=== PATIENT | female | born 1945 | race Caucasian/White ===

== ENCOUNTER 2025-03-08 10:43 | Inpatient (IN) | payer MEDICARE, BC, SELFPAY ==
[2025-03-08] VITALS (24 sets, daily range): BP systolic 126–203; BP diastolic 58–105; BMI 36.2
[2025-03-08 03:37] LABS: % Basophils 0.4 % (0-2); % Immature Granulocytes 0.4 % (0-0.5); % Monocytes 2.9 % (1.7-9.3); % Neutrophils 90.3 % (42.2-75.2); Absolute Immature Granulocytes 0.1 10^3/uL (0-0.05); Absolute Lymphocytes 0.7 10^3/uL (1.2-3.4); Absolute Monocytes 0.3 10^3/uL (0.1-0.6); Absolute Neutrophils 10.3 10^3/uL (1.4-6.5); Hematocrit 39.9 % (37.0-47.0); Hemoglobin 13.8 g/dL (12.0-16.0); Mean Corp Hgb Conc. 34.6 g/dL (33.0-37.0); Mean Corpuscular Hgb 31.9 pg (27.0-31.0); Mean Corpuscular Volume 92.4 fL (81.0-99.0); Nucleated Red Blood Cells % 0 %; Platelet Count 173 10^3/uL (130-400); Red Blood Cell Count 4.32 10^6/uL (4.20-5.40); Red Cell Dist. Width 13.3 % (11.5-14.5); White Blood Cell Count 11.4 10^3/uL (4.8-10.8)
[2025-03-08 04:02] LABS: ALT (SGPT) 26 U/L (0-35); AST (SGOT) 29 U/L (14-36); Alkaline Phosphatase 49 U/L (38-126); Blood Urea Nitrogen 21 mg/dl (7-17); Calcium 9.2 mg/dl (8.4-10.2); Carbon Dioxide 28 mmol/L (22-30); Chloride 103 mmol/L (98-107); Estimated Creatinine Clearance 58 ml/min; Glucose 138 mg/dl (70-99); Lipase 206 U/L (23-300); Potassium 4.1 mmol/L (3.5-5.1); Sodium 137 mmol/L (135-145); Total Bilirubin 1.5 mg/dl (0.2-1.3); Total Protein 7.1 g/dl (6.3-8.2); eGFR > 60.00
[2025-03-08 04:51] LABS: Urine Albumin 2+ (Neg - Trace); Urine Bilirubin Negative (Negative); Urine Character Clear (Clear); Urine Color Amber; Urine Glucose Negative (Negative); Urine Ketone 3+ (Negative); Urine Leukocyte 1+ (Negative); Urine Nitrite Negative (Negative); Urine Occult Blood 4+ (Negative); Urine Urobilinogen 1+ (Neg - 1+)
[2025-03-08 05:57] LABS: Urine Mucus Moderate; Urine Squamous Cell >30 /LPF (Few)
[2025-03-08 05:59] LABS: Urine Red Blood Cell 16-20 /HPF (0-2)
[2025-03-08 06:00] LABS: Urine Bacteria Many (Negative)
[2025-03-08] MEDS: MORPHINE SULFATE 2 MG IV ×2 (07:23→09:12)
--- NOTE | 2025-03-08 07:30 | ED.GENMED ---
History of Present Illness
<Arik Marques PA-C - Last Filed: 03/08/25 11:40>
General
Chief Complaint: Abdominal Pain
Source: patient
Time Seen by Provider: 03/08/25 07:07
History of Present Illness
History of Present Illness:
79-year-old female with past medical history of pacemaker placement presenting to the emergency department for evaluation of generalized lower abdominal pain which started about 24 hours ago, gradually worsening prompting her to come to the ER this
morning without any other associated symptoms. Patient describes the pain to be a constant cramping sensation, may be slightly worse on the left than the right, did not attempt anything for relief prior to arrival. She does note she has had
similar pain in the past but this usually resolves on its own. She is otherwise denying any fevers, chills, rigors, nausea, vomiting, bowel changes or urinary symptoms. Denies any surgical history on her abdomen. Social history otherwise
noncontributory.
Past History
<Arik Marques PA-C - Last Filed: 03/08/25 11:40>
Past History
ED Past Medical History: Arrthythmia
ED Past Surgical History: Cardiac
Social History
Tobacco: Non-smoker
Alcohol: None
Drug: None
Personal:
Living: with family
Review of Systems
<Arik Marques PA-C - Last Filed: 03/08/25 11:40>
Review of Systems
All Other Systems: ROS reviewed and negative except as documented in HPI and ROS
Phy Exam
<Arik Marques PA-C - Last Filed: 03/08/25 11:40>
Physical Exam
Physical Exam:
GENERAL: Alert , in no apparent distress but does appear uncomfortable
EYE: clear conjunctiva b/l
HEAD: NCAT
ENT: o/p clr, mmm.
CARDIAC: Borderline tachycardic rate and normal rhythm .
LUNGS: Clear breath sounds bilaterally, no acute respiratory distress, no wheezes/rales/rhonchi
ABDOMEN: firm, tender across the lower abdomen left slightly worse than right, grimacing with palpation, no cvat
NEUROLOGICAL: Alert and oriented
SKIN: Warm and dry, skin intact.
MUSCULOSKELETAL: No edema, well perfused.
PSYCH: Normal and appropriate interaction.
Scores
<Arik Marques PA-C - Last Filed: 03/08/25 11:40>
Heart Failure Risk
Heart Failure Risk Score: Not Applicable
Heart Score for Chest Pain Patients
STEMI patient?: Not applicable
Withdrawal Assessment of Alcohol
Withdrawal Assessment Completed?: Not applicable
Course
<Arik Marques PA-C - Last Filed: 03/08/25 11:40>
Orders/Labs/Results
Orders:
Orders
03/08/25 02:52
IV Insert/Care/Rem.- Treatment PRN
03/08/25 03:25
Complete Blood Count/With Diff Urgent
Comprehensive Metabolic Panel Urgent
Lipase Urgent
03/08/25 04:22
Urinalysis Reflex To Culture Urgent
Date Specimen was Collected: 03/08/25
Time Specimen was Collected: 02:52
Urine Microscopic Reflex Cult Urgent
Urine Culture Urgent
MARLEN Source: U
Specimen Description:
Date Specimen was Collected: 03/08/25
Time Specimen was Collected: 02:52
03/08/25 07:15
Morphine Sulfate 2 mg IV NOW STA
03/08/25 07:16
CT Abd/pelvis W Iv Cont Urgent
Comment:
Reason For Exam: generalized lower abd pain
03/08/25 09:03
Piperacillin/Tazo 4.5 Gram [Zosyn] 4.5 gram in 100 ml IV NOW
03/08/25 09:08
0.9% Sodium Chloride 1000 ml [Nss] 1,000 ml IV BOLUS
Morphine Sulfate 2 mg IV NOW STA
03/08/25 09:12
Lactic Acid Q4H
Comment: CANCEL 2nd LACTIC ACID IF 1st LACTIC ACID IS LESS THAN 2
Blood Culture Q30M
MARLEN Source: Blood/Venous
Specimen Description:
03/08/25 09:50
Morphine Sulfate 4 mg IV NOW STA
03/08/25 10:05
EKG [Electrocardiogram (*1)] Stat
Reason for Study: Tachycardia
03/08/25 10:06
CR Chest - 2 Views Stat
Comment:
Reason For Exam: sepsis
03/08/25 10:08
Blood Culture Q30M
MARLEN Source: Blood/Venous
Specimen Description:
03/08/25 10:30
Admit/Transfer Patient As Directed
Co-Sign Provider:
Level of Care: Inpatient admission
Assign to:: ICU
Physician / Group: Hospitalist
Diagnosis: Acute abdomen
Reason for Hospitalization: .
Expected length of stay greater than two midnights?: Yes
ELOS- Estimated Length of Stay in days: 3
I certify the patient meets the requirements for IP care: Yes
PRN Pain Medication Management As Directed
May give lesser potent ordered pain med per pt: Yes
preference::
Protocol:: Medication orders for pain may be administered in a
manner that supports deferring to patient preference
when the pt is:
- Requesting an ordered lesser potent pain medication.
Least to most potent pain medications are defined
as: acetaminophen < NSAID < tramadol < opioids
(morphine, oxycodone, hydromorphone).
- Requesting a lesser dose of the same medication IF
ORDERED.
- Requesting a less intrusive route of administration
if both routes are prescribed by the provider (PO <
IV).
03/08/25 10:31
Code Status As Directed
Resuscitation Status: Full Code
03/08/25 10:32
Consult Surgery [SURGICAL CONSULT] Stat
Consulting Provider: Johnnie Mejía
Was physician already notified: Yes
Reason for consult: Acute abdomen secondary to perforated bowel
03/08/25 13:15
Lactic Acid Q4H
Comment: CANCEL 2nd LACTIC ACID IF 1st LACTIC ACID IS LESS THAN 2
Abnormal Lab Results
03/08/25 03/08/25
03: 04:22
WBC 11.4 H 10^3/uL
(4.8-10.8)
MCH 31.9 H pg
(27.0-31.0)
Abs Immat Gran (auto) 0.1 H 10^3/uL
(0-0.05)
Absolute Neuts (auto) 10.3 H 10^3/uL
(1.4-6.5)
Absolute Lymphs (auto) 0.7 L 10^3/uL
(1.2-3.4)
Neutrophils % 90.3 H %
(42.2-75.2)
Lymphocytes % 6.0 L %
(20.5-51.1)
BUN 21 H mg/dl
(7-17)
Glucose 138 H mg/dl
(70-99)
Total Bilirubin 1.5 H mg/dl
(0.2-1.3)
Urine Ketones 3+ A
(Negative)
Ur Occult Blood Reflex 4+ A
(Negative)
Leukocyte Esterase Rfl 1+ A
(Negative)
Urine RBC 16-20 A /HPF
(0-2)
Urine Bacteria (Reflex) Many A
(Negative)
Urine Albumin (Reflex) 2+ A
(Neg - Trace)
03/08/25 03:25
03/08/25 03:25
Vital Signs
Initial and Last Documented VS:
Initial Vital Signs
Temp Pulse Resp BP Pulse Ox
98.1 F 94 18 184/85 96
03/08/25 02:36 03/08/25 02:36 03/08/25 02:36 03/08/25 02:36 03/08/25 02:36
Last Documented Vital Signs
Temp Pulse Resp BP Pulse Ox
99.3 F 87 17 163/76 91
03/08/25 07:04 03/08/25 11:00 03/08/25 11:00 03/08/25 11:00 03/08/25 11:00
<Louis Cervantes, DO - Last Filed: 03/08/25 10:26>
Orders/Labs/Results
Orders:
Orders
03/08/25 02:52
IV Insert/Care/Rem.- Treatment PRN
03/08/25 03:25
Complete Blood Count/With Diff Urgent
Comprehensive Metabolic Panel Urgent
Lipase Urgent
03/08/25 04:22
Urinalysis Reflex To Culture Urgent
Date Specimen was Collected: 03/08/25
Time Specimen was Collected: 02:52
Urine Microscopic Reflex Cult Urgent
Urine Culture Urgent
MARLEN Source: U
Specimen Description:
Date Specimen was Collected: 03/08/25
Time Specimen was Collected: 02:52
03/08/25 07:15
Morphine Sulfate 2 mg IV NOW STA
03/08/25 07:16
CT Abd/pelvis W Iv Cont Urgent
Comment:
Reason For Exam: generalized lower abd pain
03/08/25 09:03
Piperacillin/Tazo 4.5 Gram [Zosyn] 4.5 gram in 100 ml IV NOW
03/08/25 09:08
0.9% Sodium Chloride 1000 ml [Nss] 1,000 ml IV BOLUS
Morphine Sulfate 2 mg IV NOW STA
03/08/25 09:12
Lactic Acid Q4H
Comment: CANCEL 2nd LACTIC ACID IF 1st LACTIC ACID IS LESS THAN 2
Blood Culture Q30M
MARLEN Source: Blood/Venous
Specimen Description:
03/08/25 09:50
Morphine Sulfate 4 mg IV NOW STA
03/08/25 10:05
EKG [Electrocardiogram (*1)] Stat
Reason for Study: Tachycardia
03/08/25 10:06
CR Chest - 2 Views Stat
Comment:
Reason For Exam: sepsis
03/08/25 10:08
Blood Culture Q30M
MARLEN Source: Blood/Venous
Specimen Description:
03/08/25 10:30
Admit/Transfer Patient As Directed
Co-Sign Provider:
Level of Care: Inpatient admission
Assign to:: ICU
Physician / Group: Hospitalist
Diagnosis: Acute abdomen
Reason for Hospitalization: .
Expected length of stay greater than two midnights?: Yes
ELOS- Estimated Length of Stay in days: 3
I certify the patient meets the requirements for IP care: Yes
PRN Pain Medication Management As Directed
May give lesser potent ordered pain med per pt: Yes
preference::
Protocol:: Medication orders for pain may be administered in a
manner that supports deferring to patient preference
when the pt is:
- Requesting an ordered lesser potent pain medication.
Least to most potent pain medications are defined
as: acetaminophen < NSAID < tramadol < opioids
(morphine, oxycodone, hydromorphone).
- Requesting a lesser dose of the same medication IF
ORDERED.
- Requesting a less intrusive route of administration
if both routes are prescribed by the provider (PO <
IV).
03/08/25 10:31
Code Status As Directed
Resuscitation Status: Full Code
03/08/25 10:32
Consult Surgery [SURGICAL CONSULT] Stat
Consulting Provider: Johnnie Mejía
Was physician already notified: Yes
Reason for consult: Acute abdomen secondary to perforated bowel
03/08/25 13:15
Lactic Acid Q4H
Comment: CANCEL 2nd LACTIC ACID IF 1st LACTIC ACID IS LESS THAN 2
Abnormal Lab Results
03/08/25 03/08/25
03:25 04:22
WBC 11.4 H 10^3/uL
(4.8-10.8)
MCH 31.9 H pg
(27.0-31.0)
Abs Immat Gran (auto) 0.1 H 10^3/uL
(0-0.05)
Absolute Neuts (auto) 10.3 H 10^3/uL
(1.4-6.5)
Absolute Lymphs (auto) 0.7 L 10^3/uL
(1.2-3.4)
Neutrophils % 90.3 H %
(42.2-75.2)
Lymphocytes % 6.0 L %
(20.5-51.1)
BUN 21 H mg/dl
(7-17)
Glucose 138 H mg/dl
(70-99)
Total Bilirubin 1.5 H mg/dl
(0.2-1.3)
Urine Ketones 3+ A
(Negative)
Ur Occult Blood Reflex 4+ A
(Negative)
Leukocyte Esterase Rfl 1+ A
(Negative)
Urine RBC 16-20 A /HPF
(0-2)
Urine Bacteria (Reflex) Many A
(Negative)
Urine Albumin (Reflex) 2+ A
(Neg - Trace)
03/08/25 03:25
03/08/25 03:25
Vital Signs
Initial and Last Documented VS:
Initial Vital Signs
Temp Pulse Resp BP Pulse Ox
98.1 F 94 18 184/85 96
03/08/25 02:36 03/08/25 02:36 03/08/25 02:36 03/08/25 02:36 03/08/25 02:36
Last Documented Vital Signs
Temp Pulse Resp BP Pulse Ox
99.3 F 87 17 163/76 91
03/08/25 07:04 03/08/25 11:00 03/08/25 11:00 03/08/25 11:00 03/08/25 11:00
<Arik Marques PA-C - Last Filed: 03/08/25 11:40>
MDM/Problems Addressed
Differential Diagnosis Includes:
Colitis, diverticulitis, appendicitis, pancreatitis, urinary tract infection, cholecystitis constipation
MDM/Problems Addressed:
79-year-old female presenting to the emergency department for evaluation of bilateral lower abdominal pain over the last 24 hours, did not attempt any medications prior to arrival. Does appear quite uncomfortable at time of my exam. Pain little
bit worse on the left than the right with palpation. Labs initiated on arrival which do show a mild leukocytosis of 11,000, chemistry relatively unremarkable. Urinalysis does show 4+ microscopic blood and 1+ leukocytes however the differential
does not seem convincing for urinary tract infection but urine will be sent for culture. CT of the abdomen and pelvis ordered. Morphine ordered for pain control.
<Arik Marques PA-C - Last Filed: 03/08/25 11:40>
*Radiology
Radiology exam reviewed: radiology read reviewed
*Pulse Oximetry
Patient hypoxic: no
*Neon Sign Mechanic Interpretation
Rate: normal
Rhythm: sinus
*Critical Care Note
Total Time (30-74mins, 75-104mins- exclusive of procedures): 35
comment:
Critical care statement: A total of 35 minutes of critical care time was provided for this patient. This includes management of unstable vital signs, evaluation of the patient at bedside, reviewing the patient's pertinent medical records, discussion
with consultants, review of old EKGs and review of pertinent medical records. This time with separate from time utilized to perform the aforementioned documented procedures
<Arik Marques PA-C - Last Filed: 03/08/25 11:40>
Patient Management
Discussion with other providers: Hospitalist, Dry Ice Maker and Radiologist
Escalation/DeEscalation of care consider admission/obs:
8:15 AM: On reevaluation following morphine patient stated that she did have some improved pain, declining anything further for pain at this time. CT results.
9 AM: Received notification from radiology via [place] text that patient had suspected diverticulitis with associated bowel perforation and abscess formation. I contacted general surgery and spoke with hospitalist team for admission. Patient
currently on Xarelto and last dose was taken at around 8 PM last night. Discussed with surgery possibility of starting Kcentra if they felt patient needed to go to the OR sooner rather than later. At this time surgery does not feel Kcentra is
needed, will discuss with interventional radiology to see if they would be able to intervene on the affected area. Fluids and antibiotics ordered. Hospitalist team to admit. Patient to be kept NPO. I also ordered additional pain medication as
patient started to experience increased pain after the first reassessment
ED Attending Note
<Arik Marques PA-C - Last Filed: 03/08/25 11:40>
-
Portions of this chart may have been created with voice recognition software.� Occasional wrong word or��sound alike� substitutions may have occurred due to the inherent limitations of voice recognition software.
<Louis Cervantes DO - Last Filed: 03/08/25 10:26>
ED Attending Note
Patient seen and examined by attending physician: Yes
I performed the substantive portion of visit, reviewed & personally made and approve the management plan that is documented in note by myself or CHRISTINE.: Yes
ED Attending Note:
I have seen and evaluated the patient with a [id number] encounter. I have spoken to the advance practicer provider and involved in the medical history, the physical exam, medical decision making.
Evaluation and management service: agree unless noted differently below.
Results interpretation: agree unless noted differently below.
Focused HPI: 79-year-old female presenting with abdominal pain. She states it woke her up from sleep.
Physical exam: Voluntary guarding on her abdomen. Uncomfortable. Tachycardic
Medical Decision Making: CT consistent with perforated diverticulosis with possible early abscess formation. Patient is on Xarelto. Will start antibiotics and control pain. Surgery aware
Discharge Plan
Departure
Patient Disposition: Admit
Date of Disposition: 03/08/25
Time of Disposition: 09:09
Presentation/result/management discussed w/ accepting MD/DO: Hospitalist
Discharge Problem:
Diverticulitis of intestine with perforation
Interventions
Interventions:
*Risk Screen - Suicide Last Done: 03/08/25 02:36
*General Assessment Last Done: 03/08/25 04:20
*Neglect/Abuse Screening Last Done: 03/08/25 02:36
*ED- Fall Risk Assessment Last Done: 03/08/25 04:20
*ED COVID-19 Vaccine History Last Done: 03/08/25 04:20
LF-Qhswao-Kajwhirhhx Assessment Last Done: 03/08/25 04:30
[2025-03-08] MEDS: ZOSYN 100 IV (09:13)
[2025-03-08] MEDS: NSS 1000 IV ×3 (09:13→19:04)
[2025-03-08 09:44] LABS: Lactic Acid 1.1 mmol/L (0.7-2.0)
--- NOTE | 2025-03-08 10:04 | HPS.HSE ---
Family Physician
-
Family Physician: NOT KNOW UNKNOWN - PT DOES
Chief Complaint
-
Abdominal pain for a few days duration
History of Present Illness
79 years old female presented with abdominal pain. Patient described pain as a progressive in the lower abdomen. No nausea or vomiting. Denies chills. Patient denies history of diverticulitis. In the ER, she had leukocytosis and tender abdomen.
Scan of the abdomen showed perforated diverticulitis. Surgery was consulted. She was started on IV antibiotics.
Medical History
Past Medical History
Past Medical History: Reports Other (History of A-fib, status post pacemaker, mild cognitive impairment, hypertension)
Past Surgical History: Reports Other (No recent major surgery)
Social History
Tobacco: Non-smoker
Alcohol: None
Drug: None
Personal:
Living: With Family
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
Family History
Family History: Not pertinent
Allergies / Home Medications
Allergies reflects when Allergies were last updated in [employer].
Home Medications with original date entered in [employer]
Allergy/Medication List:
Allergies
Allergy/AdvReac Type Severity Reaction Status Date / Time
No Known Drug Allergies Allergy Unknown Verified 03/08/25 02:45
Home Medications
donepezil 10 mg tablet 10 mg PO DAILY 03/08/25
rivaroxaban 20 mg tablet (Xarelto) 20 mg PO QPM 03/08/25
sertraline 50 mg tablet 50 mg PO DAILY 03/08/25
valsartan 320 mg tablet 320 mg PO DAILY 03/08/25
verapamil 180 mg tablet,extended release 180 mg PO DAILY 03/08/25
Review of Systems
-
History Source: Patient
A 12 point ROS was completed and negative except as noted: Yes
Constitutional: Denies Fever
EENT: Denies Sore Throat
Respiratory: Denies Cough
Cardiac: Denies Chest Pain
Abdomen/GI: Reports Abdominal Pain
: Denies Dysuria
Musculoskeletal: Denies Joint Pain
Skin: Denies Rash
Neurological: Denies Numbness
Endocrine: Denies Temp Intolerance
Hematologic/Lymphatic: Denies Bruising
Psych: Denies Panic Disorder
Physical Exam
Vital Signs
Vital Signs
Temp Pulse Resp BP Pulse Ox
99.3 F 90 16 166/70 95
03/08/25 07:04 03/08/25 10:00 03/08/25 10:00 03/08/25 10:00 03/08/25 10:00
Physical Exam
General: Obese
HEENT: Atraumatic
Respiratory: Clear
Cardiac: S1/S2 and Tachycardia
GI: Tender and Distended
Genito-urinary: No Turner
Musculoskeletal: No Cyanosis and No Edema
Skin: No Jaundice
Neuro: Awake and Oriented; No Slurred Speech or Facial Droop
Psych: Calm; No Anxious
Laboratory Results
-
03/08/25 03:25
03/08/25 03:25
Laboratory Results
Lactic Acid 1.1 mmol/L (0.7-2.0) 03/08/25 09:12
Total Bilirubin 1.5 mg/dl (0.2-1.3) H 03/08/25 03:25
AST 29 U/L (14-36) 03/08/25 03:25
ALT 26 U/L (0-35) 03/08/25 03:25
Alkaline Phosphatase 49 U/L (38-126) 03/08/25 03:25
Lipase 206 U/L (23-300) 03/08/25 03:25
Impression/Plan
-
79 years old female admitted with abdominal pain was found to have perforated diverticulitis.
# Sepsis present on admission with leukocytosis, tachycardia, diverticulitis
Acute perforated diverticulitis.
CAT scan showed sigmoid diverticulitis with free air in the abdomen consistent with perforation
Patient has acute abdomen on examination. Surgery notified for a stat consult.
Admit the patient high-level care
Strict to n.p.o.
IV fluid
Negative lactic acid, do serial
Monitor on telemetry
IV antibiotics
Blood culture
Discussed with surgery, will do reversal agent of Xarelto
IV PPI for GI prophylaxis
# History of atrial fibrillation, do not know the type, order stat EKG. 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
Holding anticoagulation. Will order reversal agent for possible need for surgery
Patient follows with [place] [facility], no prior records
She denies chest pain.
# Primary hypertension. N.p.o. for now. Will order IV metoprolol
# CODE STATUS, full code
# Obesity BMI 36
# Mild cognitive impairment. Lives with who is a caregiver. Her cognitive function described as fair/good by the
Total critical time spent to see the patient, examine the patient, review data and lab results, discussed treatment plan with patient and her , marketing regional consultant, ER doctor and nursing staff around 80 minutes
[2025-03-08] MEDS: MORPHINE SULFATE 4 MG IV (10:07)
--- NOTE | 2025-03-08 11:47 | CON.GS ---
Addendum entered and electronically signed by Johnnie Mejía MD 03/09/25 14:56:
Patient seen and examined on 03/08/2025 (error in documentation time).
Patient is a 79 yo F with a PMH of obesity, HTN, A-fib (s/p ablation x 2, PPM, and on Xarelto, LD 5/16 PM), and CVA who presents with generalized abdominal discomfort. She began feeling unwell approximately 2 days prior to presentation. No nausea
or vomiting. No fevers or chills. She was able to pass a normal BM prior to admission. She denies any prior attacks or history of diverticulitis. No recent colonoscopy.
Gen: NAD
Abd: soft, tender (lower greater than upper), obese, mild distension, no rebound or guarding
Patient is an 79 yo F p/w acute perforated diverticulitis with abscess formation
Afebrile, mildly tachycardic, no hypotension
Labs notable for leukocytosis to 11 normal renal function, mild bilirubin elevation,
The natural history and pathophysiology of diverticulitis was discussed. Options for management including medical management with antibiotics versus surgical management were considered and discussed. We discussed that surgical management would
involve a exploratory laparotomy with end colostomy formation. Given her active anticoagulation she is at increased risk for operative complications (particularly bleeding) at this time. Given her clinical stability recommend a trial of antibiotic
management. Patient and agree. All questions answered.
--Keep NPO for bowel rest
--Abx: Zosyn
--IVF while NPO
--Hold Xarelto
--Lactic acid and blood cx pending
--Trend labs
--Discussed imaging with IR, no window for drain placement into affected area
Will continue nonoperative measures today with bowel rest and antibiotics with oral AC on hold. If she worsens or does not improve, would require emergent surgery which would likely entail colostomy creation which was discussed with patient and her
spouse. Will follow closely for improvement with nonoperative measures.
Original Note:
Consultation
-
Date/Time Consultation Performed: 03/08/25 1100
Medical History
-
Chief Complaint: Generalized lower abd discomfort
History of Present Illness:
Ms Shea is an 79 yo female with a h/o AFib on Xarelto (LD 5/16 pm), CVA and HTN who presented through the ED today with generalized lower abdominal discomfort with cramping and generally feeling unwell for the day or two. She denies nausea and
vomiting, fever or chills. She was able to pass a normal BM today. On exam, she has mild LLQ pain and moderate pain to the RLQ towards midline.
Past Medical History
Past Medical History: Arrhythmias (AFib, s/p ablation x2, PPM), CVA (2012), HTN, Psychiatric (depression) and Other (obesity)
Past Surgical History: Cardiac (ppm)
Social History
Tobacco: Non-Smoker
Alcohol: None
Family History
Family History: Reviewed & Not Pertinent
Allergies / Home Medications
Allergy/AdvReac Type Severity Reaction Status Date / Time
No Known Drug Allergies Allergy Unknown Verified 03/08/25 02:45
�Medication �Instructions �Recorded �Confirmed �Type
donepezil 10 mg tablet 10 mg PO DAILY 03/08/25 03/08/25 History
rivaroxaban 20 mg tablet (Xarelto) 20 mg PO QPM 03/08/25 03/08/25 History
sertraline 50 mg tablet 50 mg PO DAILY 03/08/25 03/08/25 History
valsartan 320 mg tablet 320 mg PO DAILY 03/08/25 03/08/25 History
verapamil 180 mg tablet,extended 180 mg PO DAILY 03/08/25 03/08/25 History
release
Review of Systems
-
History Source: Patient and Family
All other systems: Negative unless noted
A 10 point review of systems was completed, and was negative except as per HPI.
Physical Exam
Vital Signs
Temp Pulse Resp BP Pulse Ox
99.3 F 87 17 163/76 91
03/08/25 07:04 03/08/25 11:00 03/08/25 11:00 03/08/25 11:00 03/08/25 11:00
03/07/25 03/08/25 03/09/25
06:59 06:59 06:59
Actual Weight 98.8 kg
Body Mass Index (BMI) 36.2
Lab Results
03/08/25 03:25
03/08/25 03:25
WBC 11.4 10^3/uL (4.8-10.8) H 03/08/25 03:25
Hgb 13.8 g/dL (12.0-16.0) 03/08/25 03:25
Hct 39.9 % (37.0-47.0) 03/08/25 03:25
Plt Count 173 10^3/uL (130-400) 03/08/25 03:25
Abs Immat Gran (auto) 0.1 10^3/uL (0-0.05) H 03/08/25 03:25
Neutrophils % 90.3 % (42.2-75.2) H 03/08/25 03:25
Physical Exam
General: Well Developed, Well Nourished and No Apparent Distress
HEENT: Moist Mucous Membranes
Respiratory: Non Labored Respirations
Cardiac: Irregular Rhythm
GI: Soft, Tender (lower abd r>l), Distended (minimal) and Obese
Skin: Warm and Dry
Neuro: Awake, Alert and AO x 3
Psych: Calm
Data Reviewed
-
CT Scan: Image Personally Visualized and interpreted, Report Reviewed by me, Discussed with Physician, Discussed with Patient and Discussed with Family
Labs: Labs Reviewed by me, Discussed with Physician, Discussed with Patient and Discussed with Family
Assessment / Plan
-
79 yo female with h/o CVA, afib on xarelto (LD 5/16 pm) who presents with lower abdominal pain with r>l tenderness on exam with mild leukocytosis (wbc 11.4), afebrile with mild intermittent tachycardia into the low 100's. CT imaging reviewed with
findings of sigmoid diverticulitis complicated by local perforation with likely developing an abscess with associated small bowel thickening nearby. Incidental finding of left spigelian hernia containing unobstructed bowel. High risk for ileus, but
did pass a BM today.
--Keep NPO for bowel rest
--Continue IV ABX
--IVF while NPO
--Hold Xarelto
--Lactic acid and blood cx pending
--Trend labs
--Discussed imaging with IR, no window for drain placement into affected area
Will continue nonoperative measures today with bowel rest and antibiotics with oral AC on hold. If she worsens or does not improve, would require emergent surgery which would likely entail colostomy creation which was discussed with patient and her
spouse. Will follow closely for improvement with nonoperative measures.
--- NOTE | 2025-03-08 12:25 | W.PN.UPDATE ---
Update Note
Progress Note Update
Addendum
Reviewed surgery consult note
No plan for surgery today
Will cancel prothrombin complex
[2025-03-08] MEDS: LOPRESSOR 5 MG IV ×2 (12:57→17:33)
--- NOTE | 2025-03-08 13:24 | PTCARENOTE ---
Pt received from the ER into ICU 3372. Pt ambulated from stretcher to the bed, walked to the BR without issue and is now back in bed. Ox3 with some baseline confusion per , she is not the best historian but is very pleasant and cooperative.
Afib in the 100's on tele, large legs, trace LE edema, weak pedal pulses. Pacemaker. Xarleto currently on hold. Breath sounds clear on RA. ABD tender throughout, worse in the R middle, NPO. Pt walking to the bathroom with minimal assistance. Skin
clear. IV sites intact. Pt received IV Lopressor and HR is now stable in the 70-80's.
--- NOTE | 2025-03-08 14:34 | CM ---
CM following re: discharge planning.
Reviewed pt's chart, met with pt and pt's at bedside.
Pt is an 79 year old female, admitted with primary dx of Abdominal pain.
Pt reports she lives with 2SH, 3 steps to enter, has 2 children and [place]. 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 No DME, VN or SNF history.
PCP: Dr. Napier
Pharmacy: [facility]
D/C cooper: home with anticipated no needs.
CM will follow with discharge plan updates as hospitalization progresses
[2025-03-08] MEDS: ZOSYN 50 IV ×2 (15:50→22:10)
--- NOTE | 2025-03-08 17:30 | CON.INTV ---
Consultation
Consultation Request
Date/Time Consultation Requested: 03/08/2025 - 1642
Date/Time Consultation Performed: 03/08/2025 - 1706
Requesting Provider: Dr. Edward
Performing Provider: Dr. Abernathy
Reason for Consultation: Perforated sigmoid diverticulitis
Medical History
-
Chief Complaint: Abdominal pain
History of Present Illness:
79-year-old female with history of A-fib on Xarelto s/p pacemaker, mild cognitive impairment and hypertension who presented with abdominal pain. Patient says she woke up from sleep with bilateral abdominal pain and pressure. Her belly hurt when
she pressed on it. She has had this pain since yesterday and it did not go away. Her last bowel movement was yesterday (03/07). In the ER she was afebrile to 98.1 �F, pulse rate 94, respiratory rate 18, BP 184/85, and saturating 96% on room air.
Labs showed mild leukocytosis to 11.4, lactate 1.1, T. bili 1.5 and urinalysis with +1 leukocyte esterase with many urine bacteria. Urine and blood cultures collected. CT abdomen/pelvis with IV contrast showed perforated sigmoid diverticulitis
with possible early/developing pericolonic abscess. In the ER she was given 1 L NS 0.9%, 4 mg morphine and Zosyn. General surgery was consulted who advised to keep NPO for bowel rest, continue IV antibiotics, continue IVF, hold Xarelto and
continue nonoperative measures. Currently no plans for surgery but if her symptoms worsened then she would need/require surgery at that time likely with a colostomy creation. Patient admitted to the ICU for close monitoring and Clinical Pharmacy Technician
services consulted for additional management/recommendations
When I saw the patient today, she was resting in bed in no acute distress. BP 140/79, heart rate 95 and saturating 95% on room air. She still endorses middle to lower abdominal pain. Last bowel movement yesterday. She denies any blood in her
stool. She currently denies nauseous, BURNS, SOB, chest pain, fevers or chills.
PMHx: History of A-fib on Xarelto s/p pacemaker, mild cognitive impairment, hypertension
PSHx: Pacemaker, lumpectomy, cataract surgery
Past Medical History
Past Medical History: Other (Above as per HPI)
Past Surgical History: Other (Above as per HPI)
Social History
Tobacco: Non-smoker
Alcohol: None
Drug: None
Personal:
Living: With Family
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
Family History
Family History: Reviewed & Not Pertinent
Allergies / Home Medications
Allergies
Allergy/AdvReac Type Severity Reaction Status Date / Time
No Known Drug Allergies Allergy Unknown Verified 03/08/25 02:45
Home Medications
�Medication �Instructions �Recorded �Confirmed �Last Taken �Type
donepezil 10 mg tablet 10 mg PO DAILY 03/08/25 03/08/25 03/07/25 History
rivaroxaban 20 mg tablet (Xarelto) 20 mg PO QPM 03/08/25 03/08/25 03/07/25 History
sertraline 50 mg tablet 50 mg PO DAILY 03/08/25 03/08/25 03/07/25 History
valsartan 320 mg tablet 320 mg PO DAILY 03/08/25 03/08/25 03/07/25 History
verapamil 180 mg tablet,extended 180 mg PO DAILY 03/08/25 03/08/25 03/07/25 History
release
Review of Systems
-
History Source: Patient
All other systems: Negative unless noted
Vitals / Labs / Diagnostic Testing
Vital Signs
Temp Pulse Resp BP Pulse Ox
98.8 F 82 20 138/69 94
03/08/25 12:09 03/08/25 13:15 03/08/25 13:15 03/08/25 13:00 03/08/25 13:31
Lab Data
03/08/25 03:25
03/08/25 03:25
Diagnostic Testing:
Physical Exam
-
HEENT: Normocephalic and Anicteric
Cardiovascular: S1/S2 and Peripheral Edema (negative)
Respiratory: Clear, Wheeze (negative), Rales (negative), Rhonchi (negative) and Non-Labored Respirations
GI: Soft, Non Distended, Tender (Periumbilical region) and Normal Bowel Sounds
Neurology: AO x 3 and Tremors (negative)
Skin: Warm and Dry
General: Respiratory Distress (negative), Pain (Lower abdomen), Chills (negative) and Sweats (negative)
Assessment
-
Assessment: 79-year-old female with history of A-fib on Xarelto s/p pacemaker, mild cognitive impairment and hypertension who presented with abdominal pain. Patient says she woke up from sleep with bilateral abdominal pain and pressure. Her belly
hurt when she pressed on it. She has had this pain since yesterday and it did not go away. Her last bowel movement was yesterday (03/07). In the ER she was afebrile to 98.1 �F, pulse rate 94, respiratory rate 18, BP 184/85, and saturating 96% on
room air. Labs showed mild leukocytosis to 11.4, lactate 1.1, T. bili 1.5 and urinalysis with +1 leukocyte esterase with many urine bacteria. Urine and blood cultures collected. CT abdomen/pelvis with IV contrast showed perforated sigmoid
diverticulitis with possible early/developing pericolonic abscess. In the ER she was given 1 L NS 0.9%, 4 mg morphine and Zosyn. General surgery was consulted who advised to keep NPO for bowel rest, continue IV antibiotics, continue IVF, hold
Xarelto and continue nonoperative measures. Currently no plans for surgery but if her symptoms worsened then she would need/require surgery at that time likely with a colostomy creation. Patient admitted to the ICU for close monitoring and
Clinical Pharmacy Technician services consulted for additional management/recommendations
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
Impression:
#Perforated sigmoid diverticulitis with suspected early/developing pericolonic abscess.
#Leukocytosis due to above
#Hyperbilirubinemia (mild)
#Abnormal UA concerning for UTI (+1 leukocyte esterase + many urine bacteria)
#Left-sided spigelian hernia containing nonobstructed bowel
#Atrial fibrillation on Xarelto s/p PPM
Plan:
- Patient is not deemed a surgical candidate as per general surgery
- Surgery discussed imaging with IR, and unfortunately there is no safe window for drain placement into the affected area
- Serial abdominal exams
- Keep NPO
- Hold xarelto
- Pain control
- General Surgery to continue following along
- Continue with broad-spectrum antibiotics - currently on Zosyn
- Follow-up blood cultures x2 collected today
- Follow-up urine culture
- Maintain SpO2 >90-94% using supplemental O2 if needed
- Continue aspiration precautions; keep HOB >30-45�
- Maintain MAP>65
- Continue IVF with NS 0.9% @ 150cc/hr
- Replete electrolytes with K>4, Mg>2
- Maintain euglycemia with goal BG 140-180
- Trend H/H and transfuse if needed to keep Hb>7g/dL; keep plt>20k, unless there is concern for bleeding then keep plt>50k
- prn nebulized bronchodilators - not currently bronchospastic
- Incentive spirometer encouraged 10x per hour for at least 4 hrs a day
- DVT ppx: Hold Xarelto for now in case she needs emergent surgery; defer resuming NOAC to general surgery
Code status: Full Code
Continue close monitoring for this patient with a perforated viscous as she may require emergent surgery if she were to deteriorate.
Data:
CT abdomen/pelvis with IV contrast 03/08/2025:
There is stranding and edema along the sigmoid colon with a small focus of free air along the anterior aspect of the mid colon consistent with perforation. Findings are likely secondary to perforated diverticulitis with a possible early/developing
pericolonic abscess.
There is looped of small bowel which demonstrate wall thickening and mild dilation. Represent developing reactive ileus.
Left-sided spigelian hernia containing nonobstructed bowel and small volume fluid.
Total time spent today was 79 minutes for this encounter. Time includes reviewing laboratory test/imaging results, reviewing pertinent medical records, obtaining and reviewing medical history, performing an appropriate exam, ordering medications,
tests and procedures. Time also includes documentation of this encounter, coordinating patient care and communicating with other healthcare professionals. Total time does not include separately billed tests performed on this date of service.
[2025-03-08] MEDS: TYLENOL 1000 MG PO (17:32)
--- NOTE | 2025-03-08 18:10 | PTCARENOTE ---
Pt reassessed. She states she is having slightly more abd pain, currently a 7/10- 1g tylenol given and patient walked to the BR. After walking pt felt better. Assessment otherwise unchanged.
--- NOTE | 2025-03-08 20:22 | PTCARENOTE ---
Assumed care of pt at 1900. Pt is A/O x3-4, did not know the month but otherwise oriented. Pleasant and cooperative with care. Reports mild abd pain across entire abd but pain is not bad while pt is not moving. Discussed pain control options, next
Tylenol dose due around 2330 if pt feels like she needs it, unless she needs something else in the mean time. Pt voiced understanding. AFib on monitor, HR 70s-80s. 95% on RA. Physical assessment as documented in nursing shift assessment flowsheet.
Call campos and personal items within reach.
--- NOTE | 2025-03-08 22:12 | PTCARENOTE ---
Both PCT and RN separately asked pt about brushing her teeth, being set up while she was in bed if she wanted, both times pt refused and stated she would rather brush her teeth in the morning.
[2025-03-09] VITALS (21 sets, daily range): BP systolic 106–184; BP diastolic 52–92; BMI 35.9
[2025-03-09] MEDS: NSS 1000 IV ×3 (00:09→18:00)
[2025-03-09] MEDS: LOPRESSOR 5 MG IV ×4 (00:09→18:00)
--- NOTE | 2025-03-09 00:40 | PTCARENOTE ---
No change in assessment. Pt denies pain at this time. AFib 80s on monitor. Ambulated to BR with standby assistance to urinate.
[2025-03-09] MEDS: TYLENOL 1000 MG PO ×3 (02:22→15:59)
[2025-03-09] MEDS: ZOSYN 50 IV ×4 (03:28→22:03)
--- NOTE | 2025-03-09 04:32 | PTCARENOTE ---
Assessment unchanged. Medicated for mild abd pain with Tylenol at around 0220 (see EMAR for details).
[2025-03-09 05:54] LABS: Hemoglobin 12.8 g/dL (12.0-16.0); Mean Corp Hgb Conc. 34.6 g/dL (33.0-37.0); Mean Corpuscular Hgb 32.2 pg (27.0-31.0); Mean Corpuscular Volume 93.2 fL (81.0-99.0); Mean Platelet Volume 10.4 fL (7.4-10.4); Platelet Count 147 10^3/uL (130-400); Red Blood Cell Count 3.97 10^6/uL (4.20-5.40); Red Cell Dist. Width 13.8 % (11.5-14.5); White Blood Cell Count 14.8 10^3/uL (4.8-10.8)
[2025-03-09 06:11] LABS: Blood Urea Nitrogen 22 mg/dl (7-17); Carbon Dioxide 24 mmol/L (22-30); Chloride 110 mmol/L (98-107); Estimated Creatinine Clearance 52 ml/min; Glucose 108 mg/dl (70-99); Potassium 4.2 mmol/L (3.5-5.1); Sodium 137 mmol/L (135-145); eGFR 56.95
--- NOTE | 2025-03-09 08:30 | W.PN.INTV ---
Today's Communication / Plan
Recommendations
Resume PO antihypertensives as her blood pressure is starting to increase
Pain control
Serial abdominal exams
General Surgery to continue following along � continue nonoperative measures
Okay for sips of water with ice chips as per general surgery
Patient stable for downgrade out of ICU to IMU. No additional recommendations at this time. Mixer Operator/Pulmonary service will now sign off. Please reconsult if there are any additional questions/concerns, or if patient's respiratory status
deteriorates.
Assessment
-
Assessment: 79-year-old female with history of A-fib on Xarelto s/p pacemaker, mild cognitive impairment and hypertension who presented with abdominal pain. Patient says she woke up from sleep with bilateral abdominal pain and pressure. Her belly
hurt when she pressed on it. She has had this pain since yesterday and it did not go away. Her last bowel movement was yesterday (03/07). In the ER she was afebrile to 98.1 �F, pulse rate 94, respiratory rate 18, BP 184/85, and saturating 96% on
room air. Labs showed mild leukocytosis to 11.4, lactate 1.1, T. bili 1.5 and urinalysis with +1 leukocyte esterase with many urine bacteria. Urine and blood cultures collected. CT abdomen/pelvis with IV contrast showed perforated sigmoid
diverticulitis with possible early/developing pericolonic abscess. In the ER she was given 1 L NS 0.9%, 4 mg morphine and Zosyn. General surgery was consulted who advised to keep NPO for bowel rest, continue IV antibiotics, continue IVF, hold
Xarelto and continue nonoperative measures. Currently no plans for surgery but if her symptoms worsened then she would need/require surgery at that time likely with a colostomy creation. Patient admitted to the ICU for close monitoring and
Mixer Operator services consulted for additional management/recommendations
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
Impression:
#Perforated sigmoid diverticulitis with suspected early/developing pericolonic abscess
#Leukocytosis due to above
#Hyperbilirubinemia (mild)
#Abnormal UA concerning for UTI (+1 leukocyte esterase + many urine bacteria)
#Left-sided spigelian hernia containing nonobstructed bowel
#Atrial fibrillation on Xarelto s/p PPM
Plan:
- Patient is not deemed a surgical candidate as per general surgery
- Surgery discussed imaging with IR, and unfortunately there is no safe window for drain placement into the affected area
- Serial abdominal exams
- Keep NPO, although patient is okay to drink sips of water with ice chips as per general surgeon
- Hold xarelto
- Pain control
- General Surgery to continue following along
- Continue with broad-spectrum antibiotics - currently on Zosyn
- Follow-up blood cultures x2 collected yesterday (shows NGTD)
- Follow-up urine culture (shows NGTD)
- Maintain SpO2 >90-94% using supplemental O2 if needed
- Continue aspiration precautions; keep HOB >30-45�
- Maintain MAP>65
- Continue IVF with NS 0.9% @ 150cc/hr; would place stop date on this to avoid volume overload from developing
- Resume PO antihypertensives as her blood pressure is starting to rise
- Replete electrolytes with K>4, Mg>2
- Maintain euglycemia with goal BG 140-180
- Trend H/H and transfuse if needed to keep Hb>7g/dL; keep plt>20k, unless there is concern for bleeding then keep plt>50k
- prn nebulized bronchodilators - not currently bronchospastic
- Incentive spirometer encouraged 10x per hour for at least 4 hrs a day
- DVT ppx: Hold Xarelto for now in case she needs emergent surgery; defer resuming NOAC to general surgery
Code status: Full Code
Patient stable for downgrade out of ICU to IMU. No additional recommendations at this time. Mixer Operator/Pulmonary service will now sign off. Thank you for allowing us to be involved in the care of this patient. Please reconsult if there are any
additional questions/concerns, or if patient's respiratory status deteriorates.
Data:
CT abdomen/pelvis with IV contrast 03/08/2025:
There is stranding and edema along the sigmoid colon with a small focus of free air along the anterior aspect of the mid colon consistent with perforation. Findings are likely secondary to perforated diverticulitis with a possible early/developing
pericolonic abscess.
There is looped of small bowel which demonstrate wall thickening and mild dilation. Represent developing reactive ileus.
Left-sided spigelian hernia containing nonobstructed bowel and small volume fluid.
Total time spent today was 38 minutes for this encounter. Time includes reviewing laboratory test/imaging results, reviewing pertinent medical records, obtaining and reviewing medical history, performing an appropriate exam, ordering medications,
tests and procedures. Time also includes documentation of this encounter, coordinating patient care and communicating with other healthcare professionals. Total time does not include separately billed tests performed on this date of service.
Subjective Dataa
Subjective Data
Date of Service:
Date of Service: March 09, 2025
Chief Complaint: Mixer Operator Follow Up
Subjective:
Patient seen and evaluated this morning. She feels much better overall. Remains on IVF with NS 0.9% at 150 cc/hr. Heart rate 78, BP 153/74, and saturating 95% on room air. Her abdominal pain is much improved although still present. She denies
any worsening pain when she drinks water, which was okay with general surgery. Also denies chest pain, BURNS, nausea, fevers or chills. Patient's , Ari, present at bedside and all questions were answered.
Review of Systems
General: Other (Negative unless mentioned above)
Objective Data
Data Reviewed
Vital Signs / I&O / Oxygen:
Vital Signs
Temp Pulse Resp BP Pulse Ox
98.3 F 77 23 152/76 94
03/09/25 07:46 03/09/25 06:16 03/09/25 06:00 03/09/25 06:16 03/09/25 08:00
Intake and Output
03/08/25 03/09/25 03/10/25
06:59 06:59 06:59
Intake Total 2800 / 2950 450 / 450
Balance 2800 / 2950 450 / 450
SaO2 94
Physical Exam
General: Respiratory Distress (negative), Comfortable, Chills (negative) and Sweats (negative)
HEENT: Normocephalic and Anicteric
Cardiovascular: S1-S2 and Peripheral Edema (negative)
Respiratory: Clear, Wheeze (negative), Crackles (negative), Rhonchi (negative) and Non-Labored Respirations
GI: Soft, Non Distended, Tender (Abdominal tenderness to palpation diffusely, worst in the hypogastric/periumbilical region) and Normal Bowel Sounds
Neurology: AO x 3 and Tremors (negative)
Skin: Warm, Dry, Cyanosis (negative) and Jaundice (negative)
Labs/Micro/Reports
Lab Data
03/09/25 05:21
03/09/25 05:21
Laboratory Results
03/08/25
11:53
PT Cancelled
INR Cancelled
APTT Cancelled
Microbiology
03/08/25 10:08 Blood/Venous Blood Culture - Preliminary
No Growth in 24 hours- Final report to follow
03/08/25 09:12 Blood/Venous Blood Culture - Preliminary
No Growth in 24 hours- Final report to follow
[2025-03-09] MEDS: NSS (PRESERVATIVE FREE) 10 ML IV (09:02)
[2025-03-09] MEDS: ARICEPT 10 MG PO (09:02)
[2025-03-09] MEDS: PROTONIX IV 40 MG IV (09:02)
--- NOTE | 2025-03-09 10:03 | W.PN.HOSP.TC ---
Today's Communication/Plan
-
IV ABx
IVF
NPO, ok for oral meds/ small sips
Holding Xarelto
Repeat blood work in AM
c/w IV Metoprolol, PRN IV Hydralazine
IV PPI
d/w surgery, ok for IMU level
Assessment / Plan
Assessment / Plan
Physical Exam
General: Obese
HEENT: Atraumatic
Respiratory: Clear
Cardiac: S1/S2 and not Tachycardia
GI: less tender, less distended on exam.
Genito-urinary: No Turner
Musculoskeletal: No Cyanosis and No Edema
Skin: No Jaundice
Neuro: Awake and Oriented; No Slurred Speech or Facial Droop
Psych: Calm; Not Anxious
79 years old female admitted with abdominal pain was found to have perforated diverticulitis.
# Sepsis present on admission with leukocytosis, tachycardia, diverticulitis
Acute perforated diverticulitis.
CAT scan showed sigmoid diverticulitis with free air in the abdomen consistent with perforation
she is feeling better, less pain
HR stable , no hypotension, WBC remains high
d/w surgery, c/w bowel rest, IV antibiotic Zosyn #2
c/w IV fluid
f/w Blood culture
d/w surgery continue to hold Xarelto.
IV PPI for GI prophylaxis
# History of atrial fibrillation, permanent.
EKG is reviewed.
Tele monitoring. HR stable, on IV Metoprolol ATC
Holding Xarelto pending surgery to clear
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
Patient follows with [facility]ology, no prior records
She denies chest pain.
# Primary hypertension. N.p.o. for now. c/w PRN IV Hydralazine
c/w ATC IV metoprolol
# CODE STATUS, full code
# Obesity BMI 36
# Mild cognitive impairment. Lives with who is a caregiver. Her cognitive function described as fair/good by the
Total time spent to see the patient, examine the patient, review data and lab results, discussed treatment plan with patient and her , consultants( ICU & Surgery) , and nursing staff around 63 minutes
Anticipated Discharge: > 48 hours
Subjective/Interval History
-
Date of Service: March 09, 2025
No chest pain
No sob
No fevers
Objective Data
-
Labs:
Laboratory Results
03/09/25
05:21
WBC 14.8 H
Hgb 12.8
Hct 37.0
Plt Count 147
Sodium 137
Potassium 4.2
Chloride 110 H
Carbon Dioxide 24
BUN 22 H
Creatinine 1.0
Glucose 108 H
Calcium 8.0 L
Vital Signs:
Vital Signs
Temp Pulse Resp BP Pulse Ox
98.3 F 77 23 152/76 94
03/09/25 07:46 03/09/25 06:16 03/09/25 06:00 03/09/25 06:16 03/09/25 08:00
I&O
03/08/25 03/09/25 03/10/25
06:59 06:59 06:59
Intake Total 2800 / 2950 450 / 450
Balance 2800 / 2950 450 / 450
--- NOTE | 2025-03-09 10:44 | W.PN.GS2 ---
Addendum entered and electronically signed by Johnnie Mejía MD 03/09/25 15:00:
Patient seen and examined.
Reports feeling improved. Continues to have some abdominal discomfort. No nausea or vomiting. Passing flatus, no BM. Afebrile.
Gen: NAD
Abd: soft, tender (lower > upper), mild distension, obese, no rebound or guarding
Patient is an 79 yo F p/w acute perforated diverticulitis
AVSS, tachycardia has improved
Labs notable for a slight rising leukocytosis
Clinically stable with subjective improvement. Exam with continued tenderness, though stable. Given her stability recommend continued medical management with antibiotics and bowel rest. This course of action also allows for complete washout of
her high dose of Xarelto to a better timeframe of at least 48 hours. Continue to monitor and follow closely. Patient and agree. All questions answered.
--Keep NPO for bowel rest
--Abx: Zosyn
--IVF while NPO
--Hold Xarelto
--Trend labs/exams
Will continue nonoperative measures with bowel rest and antibiotics with oral AC on hold. If she worsens or does not improve, would require emergent surgery which would likely entail colostomy creation which was discussed with patient and her
spouse. Will follow closely.
Original Note:
Today's Communication / Plan
-
NPO/IV ABX
Assessment / Plan
-
79 yo female presenting h/o afib on xarelto (LD 5/16 pm) who presents with sigmoid diverticulitis complicated by local perforation with likely developing abscess with associated small bowel thickening nearby. Incidental finding of left spigelian
hernia containing unobstructed bowel.
Discussed imaging with IR (Dr. Celestin), no window for drain placement into affected area
High risk for ileus, but passing flatus
AFVSS, tachycardia resolved
WBC trended up but reports some symptomatic improvement
--Keep NPO for bowel rest
--Continue IV ABX
--IVF while NPO
--Hold Xarelto
--Trend labs/exams
Will continue nonoperative measures with bowel rest and antibiotics with oral AC on hold. If she worsens or does not improve, would require emergent surgery which would likely entail colostomy creation which was discussed with patient and her
spouse. Will follow closely.
Subjective Data
-
Date of Service: March 09, 2025
Patient seen and examined at bedside with Dr. Mejía. Denies n/v. Feels better. Passing flatus, no stools.
Objective Data
-
Intake and Output
03/08/25 03/09/25 03/10/25
06:59 06:59 06:59
Intake Total 2800 / 2950 450 / 450
Balance 2800 / 2950 450 / 450
Intake:
IV fluids (Total) 2700 / 2850 450 / 450
Nss 1,000 ml @ 150 mls/hr IV . 2700 / 2850 450 / 450
Q6H40M PARISA Rx#:[id number]
IV piggybacks 100 / 100
Other:
Number of approximated MODERATE 1 1
amounts of urine
Vital Signs
Temp Pulse Resp BP Pulse Ox
98.3 F 77 23 152/76 94
03/09/25 07:46 03/09/25 06:16 03/09/25 06:00 03/09/25 06:16 03/09/25 08:00
Lab Results
03/09/25 05:21
03/09/25 05:21
Calcium 8.0 mg/dl (8.4-10.2) L 03/09/25 05:21
Total Bilirubin 1.5 mg/dl (0.2-1.3) H 03/08/25 03:25
AST 29 U/L (14-36) 03/08/25 03:25
ALT 26 U/L (0-35) 03/08/25 03:25
Alkaline Phosphatase 49 U/L (38-126) 03/08/25 03:25
Total Protein 7.1 g/dl (6.3-8.2) 03/08/25 03:25
Albumin 4.0 g/dl (3.5-5.0) 03/08/25 03:25
Physical Exam
-
NAD
ABD soft, generalized tenderness (stable), minimal distention
--- NOTE | 2025-03-09 10:47 | PTCARENOTE ---
Pt received from security shift manager RN. Pt Ox3 and pleasant, somewhat forgetful at times. NSR on tele with rates in the 80's, has occasional pacer spikes. Breath sounds clear, on RA. Round, obese ABD with mild with tenderness mostly on palpation but
occasionally at rest. Pill taken with sips of water without issue. at bedside, updated on plan of care. Call campos within reach.
[2025-03-09] MEDS: CALAN EXTENDED RELEASE 180 MG PO (15:59)
[2025-03-09] MEDS: DIOVAN 320 MG PO (15:59)
--- NOTE | 2025-03-09 23:34 | PTCARENOTE ---
Assumed care of pt at 1900. Pt is A/O x3, forgetful at times. Has denied the need for pain medication so far this shift. Pt has had 2 BMs this shift so far. SR with BBB on monitor, HR in 70s. SpO2 96% on RA. Pt is IMU level of care.
[2025-03-10] VITALS (15 sets, daily range): BP systolic 126–173; BP diastolic 60–91; BMI 36.7
[2025-03-10] MEDS: LOPRESSOR 5 MG IV ×4 (00:16→17:29)
[2025-03-10] MEDS: DILAUDID 0.5 MG IV ×2 (02:04→18:27)
[2025-03-10] MEDS: NSS 1000 IV ×3 (02:05→19:34)
[2025-03-10] MEDS: ZOSYN 50 IV ×4 (04:51→21:30)
[2025-03-10] MEDS: TYLENOL 1000 MG PO (04:56)
[2025-03-10] MEDS: FLUSH (NSS) 2 FLUSH IV (05:05)
[2025-03-10 05:54] LABS: Hematocrit 39.8 % (37.0-47.0); Hemoglobin 13.4 g/dL (12.0-16.0); Mean Corp Hgb Conc. 33.7 g/dL (33.0-37.0); Mean Platelet Volume 10.7 fL (7.4-10.4); Platelet Count 185 10^3/uL (130-400); Red Blood Cell Count 4.19 10^6/uL (4.20-5.40); Red Cell Dist. Width 14.1 % (11.5-14.5); White Blood Cell Count 13.9 10^3/uL (4.8-10.8)
[2025-03-10 06:02] LABS: ALT (SGPT) 21 U/L (0-35); AST (SGOT) 24 U/L (14-36); Albumin 3.4 g/dl (3.5-5.0); Alkaline Phosphatase 50 U/L (38-126); Blood Urea Nitrogen 26 mg/dl (7-17); Calcium 8.5 mg/dl (8.4-10.2); Carbon Dioxide 24 mmol/L (22-30); Chloride 109 mmol/L (98-107); Direct Bilirubin 0.2 mg/dl (0.0-0.4); Estimated Creatinine Clearance 44 ml/min; Glucose 95 mg/dl (70-99); Magnesium 2.2 mg/dl (1.6-2.3); Phosphorus 3.6 mg/dl (2.5-4.5); Potassium 4.2 mmol/L (3.5-5.1); Sodium 139 mmol/L (135-145); Total Bilirubin 1.1 mg/dl (0.2-1.3); Total Protein 6.3 g/dl (6.3-8.2); eGFR 45.76
--- NOTE | 2025-03-10 07:30 | PTCARENOTE ---
Patient received lying in bed with eyes closed, lying still, respirations nonlabored. She rouses easily to name called. She denies CP, SOB, N/V. She denies pain but states that she has mild abdominal discomfort across lower abdomen with palpation
only. See marker maker charted in worklist flowsheet. S1S2 irregular with positive murmur. Paroxysmal Afib on CM--Sometimes noted in SR and sometimes Afib. IVF via Right AC per order. Positive pulses x 4 extremities, BLE edema 2+ pitting. BBS clear
except right base diminished and left base with fine crackles and intermittent expiratory wheezes. Encouraged DB & C. Bed in low and locked position, call campos within reach.
[2025-03-10] MEDS: ZOLOFT 50 MG PO ×2 (07:36)
[2025-03-10] MEDS: DIOVAN 320 MG PO (07:36)
[2025-03-10] MEDS: ARICEPT 10 MG PO (07:36)
[2025-03-10] MEDS: PROTONIX IV 40 MG IV (07:37)
[2025-03-10] MEDS: NSS (PRESERVATIVE FREE) 10 ML IV (07:37)
[2025-03-10] MEDS: CALAN EXTENDED RELEASE 180 MG PO (07:39)
--- NOTE | 2025-03-10 09:28 | W.PN.CRS1 ---
Today's Communication / Plan
-
As below
Assessment/Plan
-
79-year-old female with PMH of A-fib (s/p ablation x 2, on Xarelto�being held), HTN, CVA, depression who presents with 2 days of abdominal pain and was found to have localized perforation of diverticulitis; being treated nonoperatively
AFVSS
WBC 13.9 from 14.8, CRP 250 from 230, Hb 15.4, CR 1.2
� No indications for surgery at this time; will obtain x-rays to rule out pneumoperitoneum
� Continue n.p.o. with IVF; may need to increase IVF due to slight rise in Cr
� Pain control with Tylenol and Dilaudid as needed
� Okay for DVT PPx; hold Xarelto
� Continue IV Zosyn
� Okay for p.o. home meds
�Appreciate hospitalist
Subjective Data
Subjective Data
Date of Service: March 10, 2025
No overnight events.
Pain is the same, but not severe. Not worse.
Denies nausea/vomiting. Patient is n.p.o.
-flatus +BMs (this a.m.) +voiding
Pt is OOB to bathroom
Objective Data
-
Vital Signs
Temp Pulse Resp BP Pulse Ox
98.3 F 72 23 149/73 97
03/10/25 07:41 03/10/25 07:39 03/10/25 06:00 03/10/25 07:39 03/10/25 06:00
Intake & Output
03/09/25 03/10/25 03/11/25
06:59 06:59 06:59
Intake Total 2800 / 2950 2600 / 2600
Balance 2800 / 2950 2600 / 2600
Intake:
IV fluids (Total) 2700 / 2850 2500 / 2500
Nss 1,000 ml @ 100 mls/hr IV . 2700 / 2850 2500 / 2500
Q10H PARISA Rx#:[id number]
IV piggybacks 100 / 100 100 / 100
Other:
Number of approximated MODERATE 1 2
amounts of urine
Lab Results
03/10/25 05:08
03/10/25 05:08
Physical Exam
-
General: No Acute Distress and AOx3
Abdomen: Soft, Non Distended, Tender (Mildly diffusely tender, worse in the epigastric region and RLQ), No Guarding and No Rebound
Skin: Warm and Dry
Wound: No Signs of Infection and No Skin Erythema
--- NOTE | 2025-03-10 13:16 | W.PN.HOSP.TC ---
Today's Communication/Plan
-
Continue with n.p.o.
Continue with IV fluid
Continue with IV antibiotics
Monitor creatinine
Assessment / Plan
Assessment / Plan
Physical Exam
General: Obese
HEENT: Atraumatic
Respiratory: Clear
Cardiac: S1/S2 and not Tachycardia
GI: soft, TTP LLQ, +Bs
Genito-urinary: No Turner
Musculoskeletal: No Cyanosis and No Edema
Skin: No Jaundice
Neuro: Awake and Oriented; No Slurred Speech or Facial Droop
Psych: Calm; Not Anxious
79 years old female admitted with abdominal pain was found to have perforated diverticulitis.
# Sepsis present on admission with leukocytosis, tachycardia, diverticulitis
Acute perforated diverticulitis.
CAT scan showed sigmoid diverticulitis with free air in the abdomen consistent with perforation
HR stable , no hypotension,
d/w surgery, c/w bowel rest, IV antibiotic Zosyn
c/w IV fluid
f/w Blood culture
d/w surgery continue to hold Xarelto.
IV PPI for GI prophylaxis
Abd xray w/worsening Ileus. Had bm earlier today
# History of atrial fibrillation, permanent.
EKG is reviewed.
Tele monitoring. HR stable, on IV Metoprolol ATC
Holding Xarelto pending surgery to clear
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
Patient follows with [facility], no prior records
She denies chest pain.
#Acute kidney injury
Ucx with contamination
on IVF. Was also started on valsartan and patient also received IV contrast on 03/08
DC losartan for now
Avoid hypotension and blood pressure fluctuation
Trend creatinine for now
# Primary hypertension. N.p.o. for now. c/w PRN IV Hydralazine
c/w ATC IV metoprolol
# CODE STATUS, full code
# Obesity BMI 36
# Mild cognitive impairment. Lives with who is a caregiver. Her cognitive function described as fair/good by the
d/w with spouse at bedside in details
Anticipated Discharge: > 48 hours
Subjective/Interval History
-
Date of Service: March 10, 2025
states of LLQ abd pain 5/10
Objective Data
-
Labs:
Laboratory Results
03/10/25
05:08
WBC 13.9 H
Hgb 13.4
Hct 39.8
Plt Count 185 D
Sodium 139
Potassium 4.2
Chloride 109 H
Carbon Dioxide 24
BUN 26 H
Creatinine 1.2 H
Glucose 95
Calcium 8.5
Total Bilirubin 1.1
AST 24
ALT 21
Alkaline Phosphatase 50
Vital Signs:
Vital Signs
Temp Pulse Resp BP Pulse Ox
97.7 F 69 25 135/76 94
03/10/25 11:19 03/10/25 12:00 03/10/25 12:00 03/10/25 12:00 03/10/25 12:00
I&O
03/09/25 03/10/25 03/11/25
06:59 06:59 06:59
Intake Total 2800 / 2950 2600 / 2600 800 / 800
Balance 2800 / 2950 2600 / 2600 800 / 800
Data Reviewed
-
Total Time Spent with Patient (in minutes): 55
--- NOTE | 2025-03-10 16:48 | CM ---
Bowel rest, worsening ileus, IV/AB. Discharge POC: TBD based on medical progression.
--- NOTE | 2025-03-10 18:59 | PTCARENOTE ---
Report given verbally to oncoming itzel, Edson SKAGGS. Questions answered.
--- NOTE | 2025-03-10 19:38 | PTCARENOTE ---
On assessment pt AAOx3, denies chest pain and SOB at this time, +2 BLLE pitting edema, + pulses, 94% RA, lungs diminished, NPO, ABD discomfort, PRN meds given see DEC, NS at 125ml/hr, bed alarm on and call campos in reach
--- NOTE | 2025-03-10 21:00 | PTCARENOTE ---
pt in AFIB, no anticoags ordered, LEATHER SCRUBBER tamela texted and made aware, no new orders at this time, pt ambulated OOB to toilet as needed, call campos in reach
[2025-03-11] VITALS (12 sets, daily range): BP systolic 127–184; BP diastolic 65–94; BMI 37.2
[2025-03-11] MEDS: TYLENOL 1000 MG PO
[2025-03-11] MEDS: NSS 1000 IV ×2 (00:09→15:19)
[2025-03-11] MEDS: ZOSYN 50 IV ×4 (03:32→21:46)
[2025-03-11 03:54] LABS: % Basophils 0.3 % (0-2); % Eosinophils 0.1 % (0-6); % Immature Granulocytes 0.7 % (0-0.5); % Lymphocytes 9.8 % (20.5-51.1); % Monocytes 7.9 % (1.7-9.3); % Neutrophils 81.2 % (42.2-75.2); Absolute Immature Granulocytes 0.1 10^3/uL (0-0.05); Absolute Lymphocytes 1.1 10^3/uL (1.2-3.4); Absolute Monocytes 0.9 10^3/uL (0.1-0.6); Absolute Neutrophils 9.2 10^3/uL (1.4-6.5); Hematocrit 37.8 % (37.0-47.0); Hemoglobin 12.6 g/dL (12.0-16.0); Mean Corp Hgb Conc. 33.3 g/dL (33.0-37.0); Mean Corpuscular Hgb 31.5 pg (27.0-31.0); Mean Corpuscular Volume 94.5 fL (81.0-99.0); Mean Platelet Volume 9.8 fL (7.4-10.4); Nucleated Red Blood Cells % 0 %; Platelet Count 188 10^3/uL (130-400); Red Cell Dist. Width 13.9 % (11.5-14.5); White Blood Cell Count 11.3 10^3/uL (4.8-10.8)
[2025-03-11 04:25] LABS: Blood Urea Nitrogen 36 mg/dl (7-17); Calcium 8.5 mg/dl (8.4-10.2); Carbon Dioxide 24 mmol/L (22-30); Chloride 113 mmol/L (98-107); Estimated Creatinine Clearance 53 ml/min; Glucose 96 mg/dl (70-99); Potassium 4.3 mmol/L (3.5-5.1); Sodium 142 mmol/L (135-145); eGFR 56.95
[2025-03-11] MEDS: LOPRESSOR 5 MG IV ×3 (05:24→11:43)
--- NOTE | 2025-03-11 08:57 | PN.CDI ---
CDI
- -
CDI:
Physician Documentation Request
Admit Date: 03/08/25 10:43
Dear Doctor Ivelisse,
Please review the following and provide your response in the progress notes.
Clinical Indicators:
- Patient admit for sepsis with acute perforated diverticulitis
- 03/08 H&P pmh primary hypertension
- 5mg IV metoprolol added Q6h - given x 12
Selected Entries
03/08/25
02:36 03/08/25
04:25 03/08/25
07:04
Blood pressure 184/85 203/91 192/93
Please clarify which, if any of the following, is a more accurate diagnosis reflecting the type and acuity of the documented hypertension:
Essential primary hypertension
Hypertensive Urgency - B/P is severely elevated (systolic > or = to 180 or diastolic > or = to 110) but there is no associated organ damage. Symptoms may include: headache, shortness of breath, nosebleeds, severe anxiety. Treatment usually consists
of addition to or adjusting of oral medications and does not generally necessitate hospitalization.
Hypertensive Emergency - B/P is severely elevated (systolic > or = to 180 or diastolic > or = to 110) but can occur at lower levels especially in patients who did not previously have high B/P. There is usually associated organ damage. Symptoms may
include: memory loss, LOC, CVA, LA, angina, renal failure, pulmonary edema. Generally requires more aggressive treatment and a hospitalization.
Hypertensive Crisis - an acute elevation in B/P that can lead to organ damage. Broad term that is further differentiated to include urgency or emergency based on presence of organ damage.
Other (please specify)
Use of terms such as suspected, likely, concern for, or probable (associated with a specific diagnosis that is being evaluated, monitored, or treated as if it exists) are acceptable and can be coded in the inpatient setting, when documented at the
time of discharge.
Thank you,
Nikita Barker RN
CDI Specialist
Please use your independent medical judgment in providing your response.
[2025-03-11] MEDS: PROTONIX IV 40 MG IV (09:12)
[2025-03-11] MEDS: NSS (PRESERVATIVE FREE) 10 ML IV (09:13)
[2025-03-11] MEDS: ARICEPT 10 MG PO (09:14)
--- NOTE | 2025-03-11 09:30 | W.PN.CRS1 ---
Today's Communication / Plan
-
clear liquids
Assessment/Plan
-
79-year-old female with PMH of A-fib (s/p ablation x 2, on Xarelto�being held), HTN, CVA, depression who presents with 2 days of abdominal pain and was found to have localized perforation of diverticulitis; being treated nonoperatively
AFVSS
WBC 11.3 (13.9)m, Hb 12.6 (15.4), CR 1.0 (1.2)
� No indications for surgery at this time
� Advance to clear liquids
� Pain control with Tylenol and Dilaudid as needed
� Okay for DVT PPx; hold Xarelto
� Continue IV Zosyn
� Okay for p.o. home meds
� Appreciate hospitalist
Subjective Data
Subjective Data
Date of Service: March 11, 2025
Patient states she feels well. She has less pain. She is having some scant bleeding while wiping.
Objective Data
-
Vital Signs
Temp Pulse Resp BP Pulse Ox
98.4 F 70 19 172/86 95
03/11/25 00:05 03/11/25 06:00 03/11/25 06:00 03/11/25 06:00 03/11/25 05:00
Intake & Output
03/10/25 03/11/25 03/12/25
06:59 06:59 06:59
Intake Total 2600 / 2600 2550 / 2550
Balance 2600 / 2600 2550 / 2550
Intake:
Oral fluids 0 / 0
IV fluids (Total) 2500 / 2500 2350 / 2350
Nss 1,000 ml @ 125 mls/hr IV . 2500 / 2500 2350 / 2350
Q8H PARISA Rx#:[id number]
IV piggybacks 100 / 100 200 / 200
Other:
Number of approximated MODERATE 2 1
amounts of urine
Lab Results
03/11/25 03:44
03/11/25 03:44
Physical Exam
-
General: No Acute Distress and AOx3
Abdomen: Soft, Non Distended and Tender (mild LLQ)
Skin: Warm and Dry
[2025-03-11] MEDS: CALAN EXTENDED RELEASE 180 MG PO (09:52)
--- NOTE | 2025-03-11 13:31 | W.PN.HOSP.TC ---
Addendum entered and electronically signed by Herminio Oviedo MD 03/11/25 14:07:
Primary hypertension with urgency
Original Note:
Today's Communication/Plan
-
Monitor diet tolerance with clears
Continue with IV antibiotics
If tolerating liquids can start fluids later
PT
Out of IMU
Assessment / Plan
Assessment / Plan
Physical Exam
General: Obese
HEENT: Atraumatic
Respiratory: Clear
Cardiac: S1/S2 and not Tachycardia
GI: soft, TTP LLQ, +Bs
Genito-urinary: No Turner
Musculoskeletal: No Cyanosis and No Edema
Skin: No Jaundice
Neuro: Awake and Oriented; No Slurred Speech or Facial Droop
Psych: Calm; Not Anxious
79 years old female admitted with abdominal pain was found to have perforated diverticulitis.
# Sepsis present on admission with leukocytosis, tachycardia, diverticulitis
Acute perforated diverticulitis.
CAT scan showed sigmoid diverticulitis with free air in the abdomen consistent with perforation
HR stable , no hypotension,
d/w surgery, c/w bowel rest, IV antibiotic Zosyn
c/w IV fluid
f/w Blood culture remains negative so far
d/w surgery continue to hold Xarelto.
IV PPI for GI prophylaxis
Diet advance to clears.
# History of atrial fibrillation, permanent.
EKG is reviewed.
Tele monitoring. HR stable, on IV Metoprolol ATC
Holding Xarelto pending surgery to clear
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
Patient follows with [place] [facility], no prior records
She denies chest pain. Continue with verapamil
#Acute kidney injury
Ucx with contamination
on IVF. Was also started on valsartan and patient also received IV contrast on 03/08
Holding valsartan for now
Avoid hypotension and blood pressure fluctuation
Trend creatinine for now
Creatinine downtrending
# Primary hypertension
P.o. verapamil.
# CODE STATUS, full code
# Obesity BMI 36
# Mild cognitive impairment. Lives with who is a caregiver. Her cognitive function described as fair/good by the
d/w with spouse at bedside in details
Transfer out of IMU
Anticipated Discharge: > 48 hours
Subjective/Interval History
-
Date of Service: March 11, 2025
denies abd pain
sitting in chair
Objective Data
-
Labs:
Laboratory Results
03/11/25
03:44
WBC 11.3 H
Hgb 12.6
Hct 37.8
Plt Count 188
Sodium 142
Potassium 4.3
Chloride 113 H
Carbon Dioxide 24
BUN 36 H
Creatinine 1.0
Glucose 96
Calcium 8.5
Vital Signs:
Vital Signs
Temp Pulse Resp BP Pulse Ox
98.4 F 75 19 156/88 95
03/11/25 00:05 03/11/25 11:43 03/11/25 06:00 03/11/25 11:43 03/11/25 05:00
I&O
03/10/25 03/11/25 03/12/25
06:59 06:59 06:59
Intake Total 2600 / 2600 2550 / 2550
Balance 2600 / 2600 2550 / 2550
--- NOTE | 2025-03-11 13:57 | PTCARENOTE ---
pt awake and alert , NSR , occasional a fib , V paced on classroom monitor , BP in am 171/83 , restarted on anti hypertensives, she was seen by colorectal and she is now able to have clear liquids and she has tolerated them well, she denies any
abdominal pain , she had x 1 loose bm stating it was dark in color , she also notes some blood with wiping but has a history of hemorrhoids , she spoke to colorectal F[employer] this am and was aware , she is now written for manager monitoring bed ,
in room and updated on current condition and plan of care
--- NOTE | 2025-03-11 14:47 | CM ---
Clear liquids, IV/AB, no surgery at this time. Discharge POC: TBD based on medical progression.
[2025-03-11] MEDS: APRESOLINE 5 MG IV (15:31)
--- NOTE | 2025-03-11 16:54 | PTCARENOTE ---
pt blood pressure up > 170 she was given IV hydrolazine as ordered, pt to transfer to room 419-1 , report given to receiving RN
[2025-03-11] MEDS: APRESOLINE 10 MG IV ×2 (18:34→22:34)
[2025-03-12] VITALS (7 sets, daily range): BP systolic 153–197; BP diastolic 66–120; PULSE 76; O2SAT 99
[2025-03-12] MEDS: ZOSYN 50 IV ×4 (03:02→21:31)
[2025-03-12] MEDS: NSS 1000 IV (03:02)
[2025-03-12] MEDS: ZOLOFT 50 MG PO (07:57)
[2025-03-12] MEDS: ARICEPT 10 MG PO (07:57)
[2025-03-12] MEDS: CALAN EXTENDED RELEASE 180 MG PO (07:57)
[2025-03-12] MEDS: NSS (PRESERVATIVE FREE) 10 ML IV (07:57)
[2025-03-12] MEDS: PROTONIX IV 40 MG IV (07:58)
[2025-03-12 08:03] LABS: % Basophils 0.4 % (0-2); % Eosinophils 0.1 % (0-6); % Immature Granulocytes 1.2 % (0-0.5); % Lymphocytes 10.1 % (20.5-51.1); % Monocytes 8.9 % (1.7-9.3); % Neutrophils 79.3 % (42.2-75.2); Absolute Immature Granulocytes 0.1 10^3/uL (0-0.05); Absolute Lymphocytes 0.8 10^3/uL (1.2-3.4); Absolute Monocytes 0.7 10^3/uL (0.1-0.6); Absolute Neutrophils 6.2 10^3/uL (1.4-6.5); Hematocrit 35.9 % (37.0-47.0); Hemoglobin 12.1 g/dL (12.0-16.0); Mean Corp Hgb Conc. 33.7 g/dL (33.0-37.0); Mean Corpuscular Hgb 31.2 pg (27.0-31.0); Mean Corpuscular Volume 92.5 fL (81.0-99.0); Mean Platelet Volume 10.1 fL (7.4-10.4); Nucleated Red Blood Cells % 0 %; Platelet Count 181 10^3/uL (130-400); Red Blood Cell Count 3.88 10^6/uL (4.20-5.40); Red Cell Dist. Width 14.1 % (11.5-14.5); White Blood Cell Count 7.8 10^3/uL (4.8-10.8)
[2025-03-12 08:32] LABS: Blood Urea Nitrogen 31 mg/dl (7-17); Calcium 8.2 mg/dl (8.4-10.2); Carbon Dioxide 24 mmol/L (22-30); Chloride 114 mmol/L (98-107); Estimated Creatinine Clearance 59 ml/min; Glucose 103 mg/dl (70-99); Potassium 3.7 mmol/L (3.5-5.1); Sodium 141 mmol/L (135-145); eGFR > 60.00
[2025-03-12] MEDS: NSS IV (08:50)
[2025-03-12] MEDS: DIOVAN 320 MG PO (09:00)
--- NOTE | 2025-03-12 09:02 | W.PN.CRS1 ---
Today's Communication / Plan
-
Full liquids
Assessment/Plan
-
79-year-old female with PMH of A-fib (s/p ablation x 2, on Xarelto�being held), HTN, CVA, depression who presents with 2 days of abdominal pain and was found to have localized perforation of diverticulitis; being treated nonoperatively
AFVSS
WBC now normal, Hb 12.1 (15.4), CR 0.9 (1.2)
� Treatment options again reviewed including continued nonoperative management versus surgery. I reviewed the risks and benefit of each and the plan is to continue with nonoperative treatment.
� Advance to full liquids
� Pain control with Tylenol and Dilaudid as needed (no Dilaudid for 2 days)
� Okay for DVT PPx; hold Xarelto (possible restart tomorrow)
� Continue IV Zosyn
� Okay for p.o. home meds
� Appreciate hospitalist
Subjective Data
Subjective Data
Date of Service: March 12, 2025
She states she feels better today. She is tolerating clears and denies any nausea. She voiding her bowels and loose, as expected.
Objective Data
-
Vital Signs
Temp Pulse Resp BP Pulse Ox
98.2 F 83 18 182/68 96
03/12/25 07:00 03/12/25 07:57 03/12/25 07:00 03/12/25 07:57 03/12/25 07:00
Intake & Output
03/11/25 03/12/25 03/13/25
06:59 06:59 06:59
Intake Total 2550 / 2550 1100 / 1100
Balance 2550 / 2550 1100 / 1100
Intake:
Oral fluids 0 / 0 250 / 250
IV fluids (Total) 2350 / 2350 800 / 800
Nss 1,000 ml @ 100 mls/hr IV . 2350 / 2350 800 / 800
Q10H PARISA Rx#:[id number]
IV piggybacks 200 / 200 50 / 50
Other:
Number of approximated MODERATE 1 2
amounts of urine
Lab Results
03/12/25 07:04
03/12/25 07:04
Physical Exam
-
General: No Acute Distress
Abdomen: Soft, Non Distended and Tender (Mild left lower quadrant)
Extremities: No Edema and No Calf Tenderness
--- NOTE | 2025-03-12 11:18 | CM ---
Chart reviewed, met with pt and her at bedside. Explained role of CM, pt denies needs at this time. CM requested PT/OT eval. CM will continue to follow for discharge planning needs.
Plan: Home with , watch for VN needs
--- NOTE | 2025-03-12 11:57 | W.PN.HOSP.TC ---
Today's Communication/Plan
-
FULLs
Dc IVF
monitor BP and adjust as needed
Assessment / Plan
Assessment / Plan
Physical Exam
General: Obese
HEENT: Atraumatic
Respiratory: Clear
Cardiac: S1/S2 and not Tachycardia
GI: soft, non tender, non distended.
Genito-urinary: No Turner
Musculoskeletal: No Cyanosis and No Edema, LUE edema
Skin: No Jaundice
Neuro: Awake and Oriented; No Slurred Speech or Facial Droop
Psych: Calm; Not Anxious
79 years old female admitted with abdominal pain was found to have perforated diverticulitis.
# Sepsis present on admission with leukocytosis, tachycardia, diverticulitis
Acute perforated diverticulitis.
CAT scan showed sigmoid diverticulitis with free air in the abdomen consistent with perforation
HR stable , no hypotension,
d/w surgery, c/w bowel rest, IV antibiotic Zosyn
Tolerating liquid-DC IVF
f/w Blood culture remains negative so far
surgery continue to hold Xarelto. Hopefully can be restarted in 24h. Pt understands risk of restarting xarelto/AC earlier of bleeding and need to go for emergent surgery.
IV PPI for GI prophylaxis
Diet advance to fulls
# History of atrial fibrillation, permanent.
EKG is reviewed.
Tele monitoring. HR stable,
Holding Xarelto pending surgery to clear
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
Patient follows with [facility], no prior records
She denies chest pain. Continue with verapamil
#Acute kidney injury
Ucx with contamination
on IVF. Was also started on valsartan and patient also received IV contrast on 03/08
Avoid hypotension and blood pressure fluctuation
Trend creatinine for now
Creatinine downtrending
# Primary hypertension with urgency
P.o. verapamil, valsartan
prn hydralazine
# CODE STATUS, full code
# Obesity BMI 36
# Mild cognitive impairment. Lives with who is a caregiver. Her cognitive function described as fair/good by the
d/w with spouse at bedside in details
Anticipated Discharge: 24 - 48 hours
Subjective/Interval History
-
Date of Service: March 12, 2025
denies abd pain
tolerating liquids
Objective Data
-
Labs:
Laboratory Results
03/12/25
07:04
WBC 7.8
Hgb 12.1
Hct 35.9 L
Plt Count 181
Sodium 141
Potassium 3.7
Chloride 114 H
Carbon Dioxide 24
BUN 31 H
Creatinine 0.9
Glucose 103 H
Calcium 8.2 L
Vital Signs:
Vital Signs
Temp Pulse Resp BP Pulse Ox
97.4 F 71 18 175/66 96
03/12/25 11:00 03/12/25 11:00 03/12/25 11:00 03/12/25 11:00 03/12/25 11:00
I&O
03/11/25 03/12/25 03/13/25
06:59 06:59 06:59
Intake Total 2550 / 2550 1100 / 1100
Balance 2550 / 2550 1100 / 1100
[2025-03-12] MEDS: ROXICODONE 5 MG PO (19:12)
[2025-03-12] MEDS: APRESOLINE 10 MG IV (20:07)
[2025-03-12] MEDS: TYLENOL 1000 MG PO (21:32)
[2025-03-12] MEDS: ROXICODONE 10 MG PO (22:31)
[2025-03-13 03:06] VITALS: BP 156/74
[2025-03-13] MEDS: APRESOLINE 10 MG IV ×4 (03:23→20:46)
[2025-03-13] MEDS: ZOSYN 50 IV ×4 (03:24→22:25)
[2025-03-13 07:00] VITALS: BP 154/70
[2025-03-13] MEDS: CALAN EXTENDED RELEASE 180 MG PO (08:21)
[2025-03-13] MEDS: PROTONIX IV 40 MG IV (08:21)
[2025-03-13] MEDS: NSS (PRESERVATIVE FREE) 10 ML IV (08:21)
[2025-03-13] MEDS: ZOLOFT 50 MG PO (08:22)
[2025-03-13] MEDS: DIOVAN 320 MG PO (08:22)
[2025-03-13] MEDS: ARICEPT 10 MG PO (08:22)
[2025-03-13 08:43] LABS: % Basophils 0.6 % (0-2); % Eosinophils 0.3 % (0-6); % Immature Granulocytes 1.8 % (0-0.5); % Lymphocytes 12.8 % (20.5-51.1); % Monocytes 10.7 % (1.7-9.3); % Neutrophils 73.8 % (42.2-75.2); Absolute Immature Granulocytes 0.1 10^3/uL (0-0.05); Absolute Lymphocytes 0.9 10^3/uL (1.2-3.4); Absolute Monocytes 0.8 10^3/uL (0.1-0.6); Absolute Neutrophils 5.3 10^3/uL (1.4-6.5); Hematocrit 36.1 % (37.0-47.0); Hemoglobin 12.3 g/dL (12.0-16.0); Mean Corp Hgb Conc. 34.1 g/dL (33.0-37.0); Mean Corpuscular Hgb 31.7 pg (27.0-31.0); Mean Platelet Volume 9.9 fL (7.4-10.4); Nucleated Red Blood Cells % 0 %; Platelet Count 190 10^3/uL (130-400); Red Blood Cell Count 3.88 10^6/uL (4.20-5.40); Red Cell Dist. Width 14.1 % (11.5-14.5); White Blood Cell Count 7.2 10^3/uL (4.8-10.8)
--- NOTE | 2025-03-13 09:04 | W.PN.CRS1 ---
Today's Communication / Plan
-
CT A/P
NPO
Assessment/Plan
-
79-year-old female with PMH of A-fib (s/p ablation x 2, on Xarelto�being held), HTN, CVA, depression who presents with 2 days of abdominal pain and was found to have localized perforation of diverticulitis; being treated nonoperatively
AFVSS
WBC 7.2, Hb 12.3 (12.1)
� Given worsening pain, CT A/P ordered
- Remain NPO until CT is completed
� Pain control with Tylenol and Dilaudid as needed (no Dilaudid for 2 days)
� Okay for DVT PPx; hold Xarelto (possible restart tomorrow)
� Continue IV Zosyn
� Okay for p.o. home meds
� Appreciate hospitalist
Subjective Data
Subjective Data
Date of Service: March 13, 2025
Patient states she has worsening abdominal pain. Overall she had been feeling better until last night. She denies nausea but doesn't want to eat much. Her stools are loose.
Objective Data
-
Vital Signs
Temp Pulse Resp BP Pulse Ox
98.4 F 87 20 154/70 97
03/13/25 07:00 03/13/25 08:21 03/13/25 07:00 03/13/25 08:21 03/13/25 07:00
Intake & Output
03/12/25 03/13/25 03/14/25
06:59 06:59 06:59
Intake Total 1100 / 1100 1000 / 1000
Balance 1100 / 1100 1000 / 1000
Intake:
Oral fluids 250 / 250 900 / 900
IV fluids (Total) 800 / 800
Nss 1,000 ml @ 100 mls/hr IV . 800 / 800
Q10H PARISA Rx#:[id number]
IV piggybacks 50 / 50 100 / 100
Other:
Number of approximated MODERATE 2
amounts of urine
Number of approximated LARGE 1
amounts of urine
Lab Results
03/13/25 07:05
Physical Exam
-
General: No Acute Distress and AOx3
Abdomen: Soft, Non Distended and Tender (LLQ- moderate)
Skin: Warm and Dry
[2025-03-13] MEDS: OMNIPAQUE 50 ML PO (10:00)
[2025-03-13] MEDS: LR 1000 IV (10:07)
[2025-03-13 10:12] LABS: Blood Urea Nitrogen 33 mg/dl (7-17); Calcium 8.6 mg/dl (8.4-10.2); Carbon Dioxide 22 mmol/L (22-30); Chloride 111 mmol/L (98-107); Estimated Creatinine Clearance 53 ml/min; Glucose 113 mg/dl (70-99); Potassium 3.7 mmol/L (3.5-5.1); Sodium 139 mmol/L (135-145); eGFR 56.95
--- NOTE | 2025-03-13 10:47 | CM ---
CM reviewed chart, patient seen bedside with . Patient currently NPO, for CT abdomen/pelvis, remains on IV antibiotics. Per PT evals, likely home no needs. CM will continue to follow for all discharge planning needs.
Plan; home with when stable.
[2025-03-13 11:13] VITALS: BP 182/75
--- NOTE | 2025-03-13 12:19 | W.PN.HOSP.TC ---
Today's Communication/Plan
-
CAT scan pending
IV fluids
Continue with IV antibiotic
Diet downgraded to n.p.o.
Assessment / Plan
Assessment / Plan
Physical Exam
General: Obese
HEENT: Atraumatic
Respiratory: Clear
Cardiac: S1/S2 and not Tachycardia
GI: soft, tender to palpation left lower quadrant, non distended.
Genito-urinary: No Turner
Musculoskeletal: No Cyanosis and No Edema, LUE edema
Skin: No Jaundice
Neuro: Awake and Oriented; No Slurred Speech or Facial Droop
Psych: Calm; Not Anxious
79 years old female admitted with abdominal pain was found to have perforated diverticulitis.
# Sepsis present on admission with leukocytosis, tachycardia, diverticulitis
Acute perforated diverticulitis.
CAT scan showed sigmoid diverticulitis with free air in the abdomen consistent with perforation
vital signs stable
d/w surgery, c/w bowel rest, IV antibiotic Zosyn
f/w Blood culture remains negative so far
surgery continue to hold Xarelto. Pt understands risk of restarting xarelto/AC earlier of bleeding and need to go for emergent surgery.
IV PPI for GI prophylaxis
Patient with abdominal pain and plan for repeat CT abdomen pelvis with contrast
Currently NPO. IV fluids.
# History of atrial fibrillation, permanent.
EKG is reviewed.
Tele monitoring. HR stable,
Holding Xarelto pending surgery to clear
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
Patient follows with [place] [facility], no prior records
She denies chest pain. Continue with verapamil
#Acute kidney injury
Ucx with contamination
on IVF. Was also started on valsartan and patient also received IV contrast on 03/08
Avoid hypotension and blood pressure fluctuation
Trend creatinine for now
Creatinine downtrending
# Primary hypertension with urgency
P.o. verapamil, valsartan
prn hydralazine
Blood pressure improving. Avoid aggressive blood pressure control in the setting of abdominal pain and possible surgery requirement
# CODE STATUS, full code
# Obesity BMI 36
# Mild cognitive impairment. Lives with who is a caregiver. Her cognitive function described as fair/good by the
d/w with spouse at bedside in details on daily basis
Anticipated Discharge: > 48 hours
Subjective/Interval History
-
Date of Service: March 13, 2025
States of left lower quadrant abdominal pain
States of discomfort is rated a scale 5/10
Objective Data
-
Labs:
Laboratory Results
03/13/25
07:05
WBC 7.2
Hgb 12.3
Hct 36.1 L
Plt Count 190
Sodium 139
Potassium 3.7
Chloride 111 H
Carbon Dioxide 22
BUN 33 H
Creatinine 1.0
Glucose 113 H
Calcium 8.6
Vital Signs:
Vital Signs
Temp Pulse Resp BP Pulse Ox
98.8 F 82 17 182/75 96
03/13/25 11:13 03/13/25 11:54 03/13/25 11:13 03/13/25 11:54 03/13/25 11:13
I&O
03/12/25 03/13/25 03/14/25
06:59 06:59 06:59
Intake Total 1100 / 1100 1000 / 1000
Balance 1100 / 1100 1000 / 1000
[2025-03-13 15:00] VITALS: BP 194/74
[2025-03-13] MEDS: ROXICODONE 5 MG PO (16:06)
[2025-03-13] MEDS: ZOFRAN 4 MG IV (16:12)
[2025-03-13 20:11] VITALS: BP 178/67
[2025-03-13 22:54] VITALS: BP 142/52
[2025-03-14 02:53] VITALS: BP 135/67
[2025-03-14] MEDS: ZOSYN 50 IV ×4 (04:43→21:14)
[2025-03-14 07:00] VITALS: BP 174/69
[2025-03-14 07:54] LABS: % Basophils 0.3 % (0-2); % Eosinophils 0.3 % (0-6); % Immature Granulocytes 1.9 % (0-0.5); % Lymphocytes 12.2 % (20.5-51.1); % Monocytes 8.7 % (1.7-9.3); % Neutrophils 76.6 % (42.2-75.2); Absolute Immature Granulocytes 0.1 10^3/uL (0-0.05); Absolute Lymphocytes 0.9 10^3/uL (1.2-3.4); Absolute Monocytes 0.6 10^3/uL (0.1-0.6); Absolute Neutrophils 5.5 10^3/uL (1.4-6.5); Hematocrit 35.6 % (37.0-47.0); Hemoglobin 12.1 g/dL (12.0-16.0); Mean Corpuscular Hgb 31.8 pg (27.0-31.0); Mean Corpuscular Volume 93.7 fL (81.0-99.0); Nucleated Red Blood Cells % 0 %; Platelet Count 173 10^3/uL (130-400); Red Cell Dist. Width 14.4 % (11.5-14.5); White Blood Cell Count 7.2 10^3/uL (4.8-10.8)
[2025-03-14] MEDS: PROTONIX IV 40 MG IV (08:11)
[2025-03-14] MEDS: NSS (PRESERVATIVE FREE) 10 ML IV (08:11)
[2025-03-14] MEDS: DIOVAN 320 MG PO (08:12)
[2025-03-14] MEDS: ARICEPT 10 MG PO (08:12)
[2025-03-14] MEDS: CALAN EXTENDED RELEASE 180 MG PO (08:12)
[2025-03-14] MEDS: ZOLOFT 50 MG PO (08:12)
[2025-03-14 08:45] LABS: Blood Urea Nitrogen 34 mg/dl (7-17); Calcium 8.5 mg/dl (8.4-10.2); Carbon Dioxide 22 mmol/L (22-30); Chloride 110 mmol/L (98-107); Estimated Creatinine Clearance 44 ml/min; Glucose 107 mg/dl (70-99); Potassium 3.8 mmol/L (3.5-5.1); Sodium 137 mmol/L (135-145); eGFR 45.76
--- NOTE | 2025-03-14 09:21 | PTCARENOTE ---
pt shared with colorectal she had moderate amount of bright red blood in stool last night. Pt reports this is new, denies HX of hemorrhoids. Instructed pt to inform staff of any stool changes. CLD monitor H&H. CB in reach.
--- NOTE | 2025-03-14 11:06 | CM ---
CM reviewed chart, patient seen bedside with spouse. Patient denies needs, plan remains return home with as caregiver when stable. IMM provided, verbally reviewed, placed in chart. CM will continue to follow for all discharge planning needs.
Plan; home with when stable.
--- NOTE | 2025-03-14 11:34 | W.PN.HOSP.TC ---
Today's Communication/Plan
-
Continue with fulls
IV antibiotic
Monitor blood pressure
Monitor creatinine
Surgery recs
Assessment / Plan
Assessment / Plan
Physical Exam
General: Obese
HEENT: Atraumatic
Respiratory: Clear
Cardiac: S1/S2 and not Tachycardia
GI: soft, tender to palpation left lower quadrant, non distended.
Genito-urinary: No Turner
Musculoskeletal: No Cyanosis and chronic B/ LE Edema, LUE edema
Skin: No Jaundice
Neuro: Awake and Oriented; No Slurred Speech or Facial Droop
Psych: Calm; Not Anxious
79 years old female admitted with abdominal pain was found to have perforated diverticulitis.
# Sepsis present on admission with leukocytosis, tachycardia, diverticulitis
Acute perforated diverticulitis.
CAT scan showed sigmoid diverticulitis with free air in the abdomen consistent with perforation
vital signs stable
d/w surgery, c/w bowel rest, IV antibiotic Zosyn
f/w Blood culture remains negative so far
surgery continue to hold Xarelto. Pt understands risk of restarting xarelto/AC earlier of bleeding and need to go for emergent surgery.
IV PPI for GI prophylaxis
Repeat CT abd/pelvis
Currently NPO. IV fluids.
Repeat CT abd/pelvis suggestive of sigmoid diverticulitis. Adjacent collection of extraluminal fluid and air measures 3.9 x 2.5 x 2.1 cm in diameter, and likely represents a small peridiverticular abscess. Abscess is slightly increased in size
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
Remains on fulls.
#BRBPR per pt
-?due to hemorrhoids
-hgb has been stable.
# History of atrial fibrillation, permanent.
EKG is reviewed.
Tele monitoring. HR stable,
Holding Xarelto pending surgery to clear
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
Patient follows with [facility], no prior records
She denies chest pain. Continue with verapamil
#Acute kidney injury
Ucx with contamination
on IVF. Was also started on valsartan and patient also received IV contrast on 03/08 and 03/13
Avoid hypotension and blood pressure fluctuation
Trend creatinine for now
# Primary hypertension with urgency
P.o. verapamil, valsartan
prn hydralazine
Blood pressure improving. Avoid aggressive blood pressure control in the setting of abdominal pain and possible surgery requirement
# CODE STATUS, full code
# Obesity BMI 36
# Mild cognitive impairment. Lives with who is a caregiver. Her cognitive function described as fair/good by the
d/w with spouse at bedside in details on daily basis
Anticipated Discharge: > 48 hours
Subjective/Interval History
-
Date of Service: March 14, 2025
states of noticing some blood in stools post BM yesterday
no abd pain this morning
Objective Data
-
Labs:
Laboratory Results
03/14/25
06:40
WBC 7.2
Hgb 12.1
Hct 35.6 L
Plt Count 173
Sodium 137
Potassium 3.8
Chloride 110 H
Carbon Dioxide 22
BUN 34 H
Creatinine 1.2 H
Glucose 107 H
Calcium 8.5
Vital Signs:
Vital Signs
Temp Pulse Resp BP Pulse Ox
98.3 F 92 17 174/69 94
03/14/25 07:00 03/14/25 07:00 03/14/25 07:00 03/14/25 08:12 03/14/25 07:00
I&O
03/13/25 03/14/25 03/15/25
06:59 06:59 06:59
Intake Total 1000 / 1000 580 / 580
Balance 1000 / 1000 580 / 580
[2025-03-14 11:47] VITALS: BP 128/65
--- NOTE | 2025-03-14 13:04 | W.PN.CRS1 ---
Today's Communication / Plan
-
continue on fulls
Assessment/Plan
-
79-year-old female with PMH of A-fib (s/p ablation x 2, on Xarelto�being held), HTN, CVA, depression who presents with 2 days of abdominal pain and was found to have localized perforation of diverticulitis; being treated nonoperatively
AFVSS
WBC 7.2, Hb 12.1 (12.3)
03/13: CT A/P : Findings suggestive of sigmoid diverticulitis. Adjacent collection of extraluminal fluid and air measures 3.9 x 2.5 x 2.1 cm in diameter, and likely represents a small peridiverticular abscess. Abscess is slightly increased in size
compared to prior study, and is likely not amenable to percutaneous drainage. Dilation of the proximal small bowel, which measures up to 3.9 cm in diameter. There is a transition point at the level of a wide necked spigelian hernia as detailed
above. Oral contrast is seen within the hernia sac, and within the small bowel distal to the hernia sac. Overall, findings are suggestive of partial obstruction at the level of the left-sided spigelian hernia.
�CT abdomen pelvis from yesterday is virtually unchanged. Small abscess noted not amenable to drainage.
-Continue on full liquids today and trend exam. Will go slow given sb partial obstruction.
� Pain control with Tylenol and Dilaudid as needed (no Dilaudid for 2 days)
� Okay for DVT PPx; hold Xarelto
� Continue IV Zosyn
� Okay for p.o. home meds
� Appreciate hospitalist
Subjective Data
Subjective Data
Date of Service: March 14, 2025
Patient states she has no nausea or vomiting. She is having liquid stool. She noted some blood this morning that was tinged. It was bright red. She states she has hemorrhoids before. She has not noted any flatus today.
Objective Data
-
Vital Signs
Temp Pulse Resp BP Pulse Ox
98.3 F 79 19 128/65 93
03/14/25 11:47 03/14/25 11:47 03/14/25 11:47 03/14/25 11:47 03/14/25 11:47
Intake & Output
03/13/25 03/14/25 03/15/25
06:59 06:59 06:59
Intake Total 1000 / 1000 580 / 580
Balance 1000 / 1000 580 / 580
Intake:
Oral fluids 900 / 900 480 / 480
IV piggybacks 100 / 100 100 / 100
Other:
Number of approximated MODERATE 1 3
amounts of urine
Number of approximated LARGE 1
amounts of urine
Lab Results
03/14/25 06:40
03/14/25 06:40
Physical Exam
-
General: No Acute Distress and AOx3
Abdomen: Soft, Non Distended and Tender (Mild left lower quadrant)
Skin: Warm and Dry
[2025-03-14 15:00] VITALS: BP 128/65
[2025-03-14 15:34] VITALS: BP 128/65
[2025-03-14 23:42] VITALS: BP 159/76
[2025-03-15] MEDS: ZOSYN 50 IV ×4 (03:04→21:58)
[2025-03-15 07:13] LABS: % Basophils 0.4 % (0-2); % Eosinophils 0.4 % (0-6); % Immature Granulocytes 1.3 % (0-0.5); % Lymphocytes 12.7 % (20.5-51.1); % Monocytes 7.8 % (1.7-9.3); % Neutrophils 77.4 % (42.2-75.2); Absolute Immature Granulocytes 0.1 10^3/uL (0-0.05); Absolute Lymphocytes 0.9 10^3/uL (1.2-3.4); Absolute Monocytes 0.6 10^3/uL (0.1-0.6); Absolute Neutrophils 5.7 10^3/uL (1.4-6.5); Hematocrit 33.2 % (37.0-47.0); Hemoglobin 11.5 g/dL (12.0-16.0); Mean Corp Hgb Conc. 34.6 g/dL (33.0-37.0); Mean Corpuscular Hgb 31.9 pg (27.0-31.0); Mean Corpuscular Volume 92.2 fL (81.0-99.0); Mean Platelet Volume 9.8 fL (7.4-10.4); Nucleated Red Blood Cells % 0 %; Platelet Count 147 10^3/uL (130-400); Red Cell Dist. Width 14.1 % (11.5-14.5); White Blood Cell Count 7.4 10^3/uL (4.8-10.8)
[2025-03-15 07:46] LABS: Blood Urea Nitrogen 35 mg/dl (7-17); Calcium 8.2 mg/dl (8.4-10.2); Carbon Dioxide 23 mmol/L (22-30); Chloride 109 mmol/L (98-107); Estimated Creatinine Clearance 44 ml/min; Glucose 98 mg/dl (70-99); Potassium 3.9 mmol/L (3.5-5.1); Sodium 136 mmol/L (135-145); eGFR 45.76
[2025-03-15] MEDS: CALAN EXTENDED RELEASE 180 MG PO (07:59)
[2025-03-15] MEDS: NSS (PRESERVATIVE FREE) 10 ML IV (08:00)
[2025-03-15] MEDS: PROTONIX IV 40 MG IV (08:00)
[2025-03-15] MEDS: DIOVAN 320 MG PO (08:00)
[2025-03-15] MEDS: ZOLOFT 50 MG PO (08:00)
[2025-03-15] MEDS: ARICEPT 10 MG PO (08:00)
[2025-03-15 08:36] VITALS: BP 185/87
--- NOTE | 2025-03-15 10:57 | W.PN.HOSP.TC ---
Today's Communication/Plan
-
await CRS recs
hgb has been stable
IV abx
remains on fulls
Assessment / Plan
Assessment / Plan
Physical Exam
General: Obese
HEENT: Atraumatic
Respiratory: Clear
Cardiac: S1/S2 and not Tachycardia
GI: soft, tender to palpation left lower quadrant, non distended.
Genito-urinary: No Turner
Musculoskeletal: No Cyanosis and chronic B/ LE Edema, LUE edema
Skin: No Jaundice
Neuro: Awake and Oriented; No Slurred Speech or Facial Droop
Psych: Calm; Not Anxious
79 years old female admitted with abdominal pain was found to have perforated diverticulitis.
# Sepsis present on admission with leukocytosis, tachycardia, diverticulitis
Acute perforated diverticulitis.
CAT scan showed sigmoid diverticulitis with free air in the abdomen consistent with perforation
vital signs stable
d/w surgery, c/w bowel rest, IV antibiotic Zosyn
f/w Blood culture remains negative so far
surgery continue to hold Xarelto. Pt understands risk of restarting xarelto/AC earlier of bleeding and need to go for emergent surgery.
IV PPI for GI prophylaxis
Repeat CT abd/pelvis
Currently NPO. IV fluids.
Repeat CT abd/pelvis suggestive of sigmoid diverticulitis. Adjacent collection of extraluminal fluid and air measures 3.9 x 2.5 x 2.1 cm in diameter, and likely represents a small peridiverticular abscess. Abscess is slightly increased in size
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
Remains on fulls.
#BRBPR per pt
-?due to hemorrhoids. States of repeat episode this am.
-hgb has been stable.
# History of atrial fibrillation, permanent.
EKG is reviewed.
Tele monitoring. HR stable,
Holding Xarelto pending surgery to clear
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
Patient follows with [facility], no prior records
She denies chest pain. Continue with verapamil
#Acute kidney injury
Ucx with contamination
on IVF. Was also started on valsartan and patient also received IV contrast on 03/08 and 03/13
Avoid hypotension and blood pressure fluctuation
Trend creatinine for now
# Primary hypertension with urgency
P.o. verapamil, valsartan
prn hydralazine
Avoid aggressive blood pressure control in the setting of abdominal pain and possible surgery requirement
# CODE STATUS, full code
# Obesity BMI 36
# Mild cognitive impairment. Lives with who is a caregiver. Her cognitive function described as fair/good by the
Anticipated Discharge: > 48 hours
Subjective/Interval History
-
Date of Service: March 15, 2025
states of BRBPR
no abd pain
Objective Data
-
Labs:
Laboratory Results
03/15/25
06:07
WBC 7.4
Hgb 11.5 L
Hct 33.2 L
Plt Count 147
Sodium 136
Potassium 3.9
Chloride 109 H
Carbon Dioxide 23
BUN 35 H
Creatinine 1.2 H
Glucose 98
Calcium 8.2 L
Vital Signs:
Vital Signs
Temp Pulse Resp BP Pulse Ox
98.4 F 80 16 185/87 96
03/15/25 08:36 03/15/25 08:36 03/15/25 08:36 03/15/25 08:36 03/15/25 08:36
I&O
03/14/25 03/15/25 03/16/25
06:59 06:59 06:59
Intake Total 580 / 580
Balance 580 / 580
--- NOTE | 2025-03-15 14:41 | W.PN.CRS1 ---
Addendum entered and electronically signed by Bobby Marx MD 03/15/25 15:11:
I saw and examined the patient.
The APPLIED MATHEMATICIAN's note was reviewed and I agree with the note.
Comment:
Seen earlier with APPLIED MATHEMATICIAN.
Denied abdominal pain. Still a bit of blood with BMs. No anal pain. Tolerated fulls.
AFVSS; WBC 7.4. Hg 11.5.
Abdomen nontender.
Diet advanced to LRD.
Continue antibiotics.
Watch Hg.
Original Note:
Today's Communication / Plan
-
lrd
Assessment/Plan
-
79-year-old female with PMH of A-fib (s/p ablation x 2, on Xarelto�being held), HTN, CVA, depression who presents with 2 days of abdominal pain and was found to have localized perforation of diverticulitis; being treated nonoperatively
AFVSS
No leukocytosis
03/13: CT A/P virtually unchanged. Small abscess noted, not amenable to drainage.
Tolerating dietary advances, pain now resolved. Labs stable
Passing stools with some suspected hemorrhoidal irritation/small bleeding
- Advance to LRD
� Pain control as needed
� Okay for DVT PPx with enoxaparin; hold Xarelto
� Continue IV Zosyn
� Appreciate hospitalist
Subjective Data
Subjective Data
Date of Service: March 15, 2025
Patient seen and examined at bedside with Dr. Marx. Denies n/v. Passing stools, has noticed a little blood on the tissue after wiping otherwise stools nonbloody. Denies pain. Tolerating FLD. at bedside and updated.
Objective Data
-
Vital Signs
Temp Pulse Resp BP Pulse Ox
98.4 F 80 16 185/87 96
03/15/25 08:36 03/15/25 08:36 03/15/25 08:36 03/15/25 08:36 03/15/25 08:36
Intake & Output
03/14/25 03/15/25 03/16/25
06:59 06:59 06:59
Intake Total 580 / 580
Balance 580 / 580
Intake:
Oral fluids 480 / 480
IV piggybacks 100 / 100
Other:
Number of approximated MODERATE 1 3 1
amounts of urine
Number of approximated LARGE 1
amounts of urine
Lab Results
03/15/25 06:07
03/15/25 06:07
Physical Exam
-
General: No Acute Distress and AOx3
Abdomen: Soft, Non Distended and Non Tender
Skin: Warm and Dry
[2025-03-15] MEDS: LOVENOX 40 MG SC (16:20)
[2025-03-15] MEDS: APRESOLINE 10 MG IV (16:21)
[2025-03-15 16:35] VITALS: BP 160/80
[2025-03-15 23:45] VITALS: BP 154/86
[2025-03-16] MEDS: ZOSYN 50 IV ×2 (03:27→10:44)
[2025-03-16 05:59] LABS: % Basophils 0.4 % (0-2); % Eosinophils 0.7 % (0-6); % Immature Granulocytes 1.8 % (0-0.5); % Lymphocytes 17.5 % (20.5-51.1); % Neutrophils 70.6 % (42.2-75.2); Absolute Eosinophils 0.1 10^3/uL (0-0.7); Absolute Immature Granulocytes 0.1 10^3/uL (0-0.05); Absolute Lymphocytes 1.2 10^3/uL (1.2-3.4); Absolute Monocytes 0.6 10^3/uL (0.1-0.6); Absolute Neutrophils 4.8 10^3/uL (1.4-6.5); Hematocrit 33.3 % (37.0-47.0); Hemoglobin 11.5 g/dL (12.0-16.0); Mean Corp Hgb Conc. 34.5 g/dL (33.0-37.0); Mean Corpuscular Hgb 31.8 pg (27.0-31.0); Mean Platelet Volume 9.9 fL (7.4-10.4); Nucleated Red Blood Cells % 0 %; Platelet Count 163 10^3/uL (130-400); Red Blood Cell Count 3.62 10^6/uL (4.20-5.40); White Blood Cell Count 6.8 10^3/uL (4.8-10.8)
[2025-03-16 06:00] VITALS: BMI 40.3
[2025-03-16 06:22] LABS: Blood Urea Nitrogen 30 mg/dl (7-17); Calcium 8.1 mg/dl (8.4-10.2); Carbon Dioxide 26 mmol/L (22-30); Chloride 108 mmol/L (98-107); Estimated Creatinine Clearance 48 ml/min; Glucose 104 mg/dl (70-99); Potassium 3.8 mmol/L (3.5-5.1); Sodium 135 mmol/L (135-145)
[2025-03-16 07:00] VITALS: BP 177/88
[2025-03-16] MEDS: DIOVAN 320 MG PO (08:42)
[2025-03-16] MEDS: ZOLOFT 50 MG PO (08:42)
[2025-03-16] MEDS: CALAN EXTENDED RELEASE 180 MG PO (08:42)
[2025-03-16] MEDS: NSS (PRESERVATIVE FREE) 10 ML IV (08:43)
[2025-03-16] MEDS: ARICEPT 10 MG PO (08:43)
[2025-03-16] MEDS: PROTONIX IV 40 MG IV (08:43)
--- NOTE | 2025-03-16 10:04 | W.PN.CRS1 ---
Today's Communication / Plan
-
dispo planning
Assessment/Plan
-
79-year-old female with PMH of A-fib (s/p ablation x 2, on Xarelto�being held), HTN, CVA, depression who presents with 2 days of abdominal pain and was found to have localized perforation of diverticulitis; being treated nonoperatively
AFVSS
No leukocytosis
03/13: CT A/P virtually unchanged. Small abscess noted, not amenable to drainage.
Tolerating dietary advances, pain now resolved. Labs stable
Passing stools with some suspected hemorrhoidal irritation/small bleeding
- Continue LRD
� Pain control as needed
� On lovenox for VTE ppx
- Ok to resume AC
� Continue IV Zosyn, transition to PO ABX x2 weeks upon d/c
� Appreciate hospitalist
Ok for d/c from surgical standpoint
Subjective Data
Subjective Data
Date of Service: March 16, 2025
Patient seen and examined at bedside with Dr. Marx. Denies n/v. Tolerating diet. Denies pain. Very minimal blood on tissue after tissue.
Objective Data
-
Vital Signs
Temp Pulse Resp BP Pulse Ox
97.9 F 84 16 177/88 95
03/16/25 07:00 03/16/25 07:00 03/16/25 07:00 03/16/25 07:00 03/16/25 07:00
Intake & Output
03/15/25 03/16/25 03/17/25
06:59 06:59 06:59
Intake Total 580 / 580 100 / 100
Balance 580 / 580 100 / 100
Intake:
Oral fluids 480 / 480
IV piggybacks 100 / 100 100 / 100
Other:
Number of approximated MODERATE 3 3 1
amounts of urine
Number of approximated LARGE 1
amounts of urine
Lab Results
03/16/25 05:07
03/16/25 05:06
Physical Exam
-
General: No Acute Distress and AOx3
Abdomen: Soft, Non Distended and Non Tender
Skin: Warm and Dry
Incision: Clear, Dry, Intact
--- NOTE | 2025-03-16 10:52 | W.PN.HOSP.TC ---
Today's Communication/Plan
-
dc today
po abx
Assessment / Plan
Assessment / Plan
Physical Exam
General: Obese
HEENT: Atraumatic
Respiratory: Clear
Cardiac: S1/S2 and not Tachycardia
GI: soft, tender to palpation left lower quadrant, non distended.
Genito-urinary: No Turner
Musculoskeletal: No Cyanosis and chronic B/ LE Edema, LUE edema
Skin: No Jaundice
Neuro: Awake and Oriented; No Slurred Speech or Facial Droop
Psych: Calm; Not Anxious
79 years old female admitted with abdominal pain was found to have perforated diverticulitis.
# Sepsis present on admission with leukocytosis, tachycardia, diverticulitis
Acute perforated diverticulitis.
CAT scan showed sigmoid diverticulitis with free air in the abdomen consistent with perforation
vital signs stable
d/w surgery, c/w bowel rest, IV antibiotic Zosyn
f/w Blood culture remains negative so far
okay to restart xarelto per surgery
IV PPI for GI prophylaxis
Repeat CT abd/pelvis suggestive of sigmoid diverticulitis. Adjacent collection of extraluminal fluid and air measures 3.9 x 2.5 x 2.1 cm in diameter, and likely represents a small peridiverticular abscess. Abscess is slightly increased in size
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
Patient has been tolerating low residue diet. Hemoglobin has remained stable. Remains afebrile. White count normal. Per colorectal surgery patient can be discharged with p.o. antibiotics x 2 weeks per surgery
#BRBPR per pt
-?due to hemorrhoidal irritation.
-hgb has been stable.
# History of atrial fibrillation, permanent.
EKG is reviewed.
Tele monitoring. HR stable,
ok to restart xarelto
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
Patient follows with [facility], no prior records
She denies chest pain. Continue with verapamil
#Acute kidney injury
Ucx with contamination
on IVF. Was also started on valsartan and patient also received IV contrast on 03/08 and 03/13
Avoid hypotension and blood pressure fluctuation
Trend creatinine for now
# Primary hypertension with urgency
P.o. verapamil, valsartan
prn hydralazine
Avoid aggressive blood pressure control in the setting of abdominal pain and possible surgery requirement
OP pcp f/u
# CODE STATUS, full code
# Obesity BMI 36
# Mild cognitive impairment. Lives with who is a caregiver. Her cognitive function described as fair/good by the
d/w with spouse at bedside in details
PT-mich-home PT vs. no needs.
More than 30 minutes spent in discharge including
Final examination of the patient
Summarizing hospital stay
Instructions for continuing care to all relevant caregivers
Preparation of discharge records, prescriptions, and referral forms
Total time spent (in minutes): 52
Anticipated Discharge: Today
Subjective/Interval History
-
Date of Service: March 16, 2025
Denies any abdominal pain with diet
Denies any bright red blood per rectum
Objective Data
-
Labs:
Laboratory Results
03/16/25 03/16/25
05:06 05:07
WBC 6.8
Hgb 11.5 L
Hct 33.3 L
Plt Count 163
Sodium 135
Potassium 3.8
Chloride 108 H
Carbon Dioxide 26
BUN 30 H
Creatinine 1.1 H
Glucose 104 H
Calcium 8.1 L
Vital Signs:
Vital Signs
Temp Pulse Resp BP Pulse Ox
97.9 F 84 16 177/88 95
03/16/25 07:00 03/16/25 07:00 03/16/25 07:00 03/16/25 07:00 03/16/25 07:00
I&O
03/15/25 03/16/25 03/17/25
06:59 06:59 06:59
Intake Total 580 / 580 100 / 100
Balance 580 / 580 100 / 100
--- NOTE | 2025-03-16 11:04 | W.DCSUMMARY ---
Discharge Summary
Discharge Data
Date of Admission: 03/08/25
Date of Discharge: 03/16/25
-
Pending Results: No
Hospital Course
79-year-old female past medical history of atrial fibrillation, hypertension, suspected cognitive impairment who is presenting from home with complaints of abdominal pain. Patient mentation underwent CAT scan which showed sigmoid diverticulitis
with perforation. Patient was evaluated by colorectal surgery. Patient was kept n.p.o. and was started on IV fluids. Patient was on broad-spectrum antibiotics with IV Zosyn. Patient blood cultures remain negative. Xarelto was held per surgery.
Patient had abdominal pain underwent repeat CAT scan which showed mild abscess. Patient was maintained on full liquid diet and patient was tolerating diet without any abdominal pain. Patient also had some hemorrhoidal irritation causing bright red
blood per the rectum however her hemoglobin has remained persistently stable. Patient remained afebrile. Abdominal pain resolved. Patient was tolerating low residue diet for greater than 24 hours. Per colorectal surgery patient can be discharged
home on p.o. antibiotics and with follow-up outpatient with Dr. Arya Llanos in the office. Also per surgery okay to restart Xarelto.
Discharge Plan
-
Patient Disposition: Home with Home Care
Discharge Diagnosis/Procedures: Sepsis secondary to localized diverticulitis perforation with small abscess
Bright red blood per rectum likely secondary to hemorrhoidal irritation
Acute kidney injury
Primary hypertension with urgency
Condition: Fair
Diet: Low Fiber and Low Residue
Bathing Restrictions: OK to Shower
Blood Work: BMP in 1 week via primary doctor
Activity Restrictions/Additional Instructions:
Follow-up with your primary doctor for further blood pressure management.
Instructions: Low-fiber diet
Referrals:
Arya Llanos MD [Active] - in two weeks (Call to make appointment.)
Prescriptions:
New
amoxicillin-pot clavulanate 875-125 mg tablet
1 tab PO BID 14 Days Qty: 28 0RF
Continued
donepezil 10 mg Tablet
10 mg PO DAILY
verapamil 180 mg Tablet Extended Release
180 mg PO DAILY
valsartan 320 mg Tablet
320 mg PO DAILY
sertraline 50 mg Tablet
50 mg PO DAILY
Xarelto 20 mg Tablet
20 mg PO QPM
Discharge Orders:
Discharge Patient (As Directed); Ordered 03/16/25
Ordered By: Herminio Oviedo
Discharge Date and Time
Print Language: MONGOLIAN
--- NOTE | 2025-03-16 11:11 | CM ---
Chart reviewed and patient is for discharge to home today, patient is on PO ABX and is ambulating 100 feet X2 no device.
Plan; Home with spouse no needs.
== END 2025-03-16 12:42 | disposition home or self-care (01) | DRG 872 ==
LOC: 4 WEST ACU 10:43
PROVIDERS: Emergency Medicine; Physician Assistant Medical; Registered Nurse; ADMITTING PHYSICIAN Internal Medicine; ATTENDING PHYSICIAN Hospitalist; CONSULT PHYSICIAN Internal Medicine Critical Care Medicine; EMERGENCY PHYSICIAN Student in an Organized Health Care Education/Training Program; OTHER PHYSICIAN Surgery
DX: A41.9 Sepsis, unspecified organism (principal); K57.20 Diverticulitis of large intestine with perforation and abscess without bleeding; K62.5 Hemorrhage of anus and rectum; N17.9 Acute kidney failure, unspecified; R17 Unspecified jaundice; K56.7 Ileus, unspecified; I48.21 Permanent atrial fibrillation; Z95.0 Presence of cardiac pacemaker; E66.9 Obesity, unspecified; Z68.36 Body mass index [BMI] 36.0-36.9, adult; G31.84 Mild cognitive impairment of uncertain or unknown etiology; Z86.73 Personal history of transient ischemic attack (TIA), and cerebral infarction without residual deficits; Z79.01 Long term (current) use of anticoagulants; Z79.899 Other long term (current) drug therapy; I16.0 Hypertensive urgency
CPT/HCPCS: 71046; 74019; 74177; 80048; 80053; 81003; 81015; 82248; 83605; 83690; 83735; 84100; 85025; 85027; 86140; 87040; 87086; 93005; 93971; 96361; 96365; 96375; 96376; 97110; 97116; 97162; 99291; Q9967

== ENCOUNTER 2025-03-19 17:03 | Inpatient (IN) | payer MEDICARE, BC, SELFPAY ==
[2025-03-18] VITALS (8 sets, daily range): BP systolic 154–210; BP diastolic 72–86; BMI 39.6; BMI 38.2
--- NOTE | 2025-03-18 14:02 | ED.GENMED ---
History of Present Illness
General
Chief Complaint: Abdominal Pain
Source: patient, records, spouse and previous hospital records
Exam Limitations: none
Time Seen by Provider: 03/18/25 13:39
Nursing documentation reviewed up to this point in time: agreed with
History of Present Illness
History of Present Illness:
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
lower abdominal pain no nausea or vomiting fever or chills
Discharge records review looks like she was restarted on her anticoagulation does not appear to be on a diuretic
Past History
Past History
ED Past Medical History: Arrthythmia
ED Past Surgical History: Cardiac
Social History
Tobacco: Non-smoker
Alcohol: None
Drug: None
Personal:
Living: with family
Employment: Retired
Phy Exam
Physical Exam
Physical Exam:
Physical Exam
General: 79-year-old female sitting up right
Neck: Slight JVD
Heart: Right
Lungs: Faint bilateral
Abdomen: Obese not
Neuro: alert and oriented. no focal neurological deficits
Skin: no rash
Psychiatric: well kept. interactive and cooperative
Extremities: Edema of her hands and calf
Scores
Heart Failure Risk
Heart Failure Risk Score: Yes
History of Stroke or TIA: No
History of intubation for respiratory distress: No
Heart rate on ED arrival >/= 110: No
SaO2 <90% on arrival on room air: No
HR >/=110 during 3min walk test (or too ill to perform test): Yes
ECG has acute ischemic changes: No
Urea >/=12mmol/L (BUN 33.6mg/dL): No
Serum CO2>/=35mmol/L: No
Troponin I or T elevated to SC Level (0.4mg/dL): No
NT-proBNP >/=5,000ng/L (5,000pg/ml): No
HF Risk Score: 2
Admission Status: MEDIUM RISK 9.2% Consider observation or discharge to home with homecare & f/u visit to PCP/Cutting And Printing Machine Operator, or SNF for treatment
Course
Orders/Labs/Results
Orders:
Orders
03/18/25 13:39
Electrocardiogram (*1) Urgent
Reason for Study: Abdominal Pain
EKG- Treatment ONCE
03/18/25 13:58
CR Chest - 2 Views Urgent
Comment:
Reason For Exam: sob
03/18/25 14:57
Complete Blood Count/With Diff Urgent
Comprehensive Metabolic Panel Urgent
Lipase Urgent
NT-proBNP Urgent
03/18/25 15:01
Interrogate Pacemaker- Treatment ONCE
03/18/25 15:29
Furosemide [Lasix] 60 mg IV NOW STA
Abnormal Lab Results
03/18/25
14:57
WBC 13.0 H 10^3/uL
(4.8-10.8)
MCH 31.6 H pg
(27.0-31.0)
Abs Immat Gran (auto) 0.1 H 10^3/uL
(0-0.05)
Absolute Neuts (auto) 11.2 H 10^3/uL
(1.4-6.5)
Absolute Lymphs (auto) 0.8 L 10^3/uL
(1.2-3.4)
Immature Gran % 0.8 H %
(0-0.5)
Neutrophils % 86.6 H %
(42.2-75.2)
Lymphocytes % 6.5 L %
(20.5-51.1)
Glucose 104 H mg/dl
(70-99)
AST 43 H U/L
(14-36)
ALT 48 H U/L
(0-35)
Lipase 490 H U/L
(23-300)
03/18/25 14:57
03/18/25 14:57
Vital Signs
Initial and Last Documented VS:
Initial Vital Signs
Temp Pulse Resp BP Pulse Ox
98.3 F 84 20 210/85 96
03/18/25 11:39 03/18/25 11:39 03/18/25 11:39 03/18/25 11:39 03/18/25 11:39
Last Documented Vital Signs
Temp Pulse Resp BP Pulse Ox
98.3 F 84 20 154/75 97
03/18/25 11:39 03/18/25 11:39 03/18/25 11:39 03/18/25 15:00 03/18/25 15:00
MDM/Problems Addressed
Differential Diagnosis Includes:
Volume overloaded CHF doubt DVT PE as she is anticoagulant
MDM/Problems Addressed:
Edema
Chronic conditions affecting care:
Arrhythmia
Chronic conditions affecting care: Arrhythmia
Acute Exacerbation and/or Progression of Chronic Illness: Arrhythmia
*Radiology
Radiology exam reviewed: preliminary read by ED provider
*Pulse Oximetry
Patient hypoxic: no
*Tower Erector Helper Interpretation
Rate: normal
Interpretation: normal
Rhythm: sinus
*Critical Care Note
Total Time (30-74mins, 75-104mins- exclusive of procedures): Not Applicable
Data Reviewed
Review of Other/Old Records Reveals: Labs and Other
Source: patient and previous radiology exam
Update Note
Update Note:
Update prep she received excessive resuscitation with fluids, unclear what her EF is, will check proBNP chest x-ray, EKG to see if she is in sinus rhythm
EKG noted will ask RN to interrogate his device, does look volume overloaded by labs x-ray proBNP will start diuretic message sent to hospitalist
ED Attending Note
-
Portions of this chart may have been created with voice recognition software.� Occasional wrong word or��sound alike� substitutions may have occurred due to the inherent limitations of voice recognition software.
Discharge Plan
Departure
Patient Disposition: Admit
Date of Disposition: 03/18/25
Time of Disposition: 15:31
Admit to: Telemetry
Presentation/result/management discussed w/ accepting MD/DO: Hospitalist
Patient with high blood pressure during this ER visit?: Yes
Discharge Problem:
HTN (hypertension), Hypertensive urgency, CHF
Prescriptions:
No Action
donepezil 10 mg Tablet
10 mg PO DAILY
verapamil 180 mg Tablet Extended Release
180 mg PO DAILY
valsartan 320 mg Tablet
320 mg PO DAILY
sertraline 50 mg Tablet
50 mg PO DAILY
Xarelto 20 mg Tablet
20 mg PO QPM
amoxicillin-pot clavulanate 875-125 mg tablet
1 tab PO BID 14 Days Qty: 28 0RF
Referrals:
Arya Jonas, [Family Provider] -
Interventions
Interventions:
*Risk Screen - Suicide Last Done: 03/18/25 11:39
*General Assessment Last Done: 03/18/25 11:39
*Neglect/Abuse Screening Last Done: 03/18/25 11:39
*ED COVID-19 Vaccine History Last Done: 03/18/25 15:20
Discharge Date and Time
Print Language: UPPER SORBIAN
[2025-03-18 15:10] LABS: % Basophils 0.3 % (0-2); % Immature Granulocytes 0.8 % (0-0.5); % Lymphocytes 6.5 % (20.5-51.1); % Monocytes 4.8 % (1.7-9.3); % Neutrophils 86.6 % (42.2-75.2); Absolute Eosinophils 0.1 10^3/uL (0-0.7); Absolute Immature Granulocytes 0.1 10^3/uL (0-0.05); Absolute Lymphocytes 0.8 10^3/uL (1.2-3.4); Absolute Monocytes 0.6 10^3/uL (0.1-0.6); Absolute Neutrophils 11.2 10^3/uL (1.4-6.5); Hematocrit 41.3 % (37.0-47.0); Hemoglobin 14.2 g/dL (12.0-16.0); Mean Corp Hgb Conc. 34.4 g/dL (33.0-37.0); Mean Corpuscular Hgb 31.6 pg (27.0-31.0); Mean Corpuscular Volume 91.8 fL (81.0-99.0); Mean Platelet Volume 9.6 fL (7.4-10.4); Nucleated Red Blood Cells % 0 %; Platelet Count 236 10^3/uL (130-400); Red Cell Dist. Width 13.9 % (11.5-14.5)
[2025-03-18 15:17] LABS: ALT (SGPT) 48 U/L (0-35); AST (SGOT) 43 U/L (14-36); Albumin 4.1 g/dl (3.5-5.0); Alkaline Phosphatase 54 U/L (38-126); Blood Urea Nitrogen 15 mg/dl (7-17); Calcium 9.1 mg/dl (8.4-10.2); Carbon Dioxide 29 mmol/L (22-30); Chloride 102 mmol/L (98-107); Estimated Creatinine Clearance 69 ml/min; Glucose 104 mg/dl (70-99); Lipase 490 U/L (23-300); Potassium 3.5 mmol/L (3.5-5.1); Sodium 139 mmol/L (135-145); Total Bilirubin 0.7 mg/dl (0.2-1.3); Total Protein 7.2 g/dl (6.3-8.2); eGFR > 60.00
[2025-03-18 15:25] LABS: NT-proBNP 4860 pg/ml
[2025-03-18] MEDS: LASIX 60 MG IV (16:01)
--- NOTE | 2025-03-18 16:09 | HPS.HSE ---
Family Physician
-
Family Physician: Arya Jonas
Chief Complaint
-
generalized edema and exertional shortness of breath
History of Present Illness
Patient is a 79-year-old female with past medical history significant for permanent atrial fibrillation, hypertension and mild cognitive impairment who presented to [facility] ED for evaluation of generalized edema and exertional shortness of breath.
Patient recently hospitalized 03/08/2025 - 03/16/2025 for diverticulitis perforation with small abscess that was conservatively treated. Patient states prior to discharge she had generalized edema, and stating that it is about the same and
has not gotten better or worse. Patient denies any fever, chills, cough, chest pain, nausea, vomiting, constipation, diarrhea and urinary.
Medical History
Past Medical History
Past Medical History: Reports Other
Additional Past Medical History:
permanent atrial fibrillation
hypertension
mild cognitive impairment
Hx perforated diverticulitis
Past Surgical History: Reports Other
Additional Past Surgical History:
pacemaker
Social History
Tobacco: Non-smoker
Alcohol: None
Drug: None
Personal:
Living: With Family
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
Family History
Family History: Not pertinent
Allergies / Home Medications
Allergies reflects when Allergies were last updated in [email or web address].
Home Medications with original date entered in [email or web address]
Allergy/Medication List:
Allergies
Allergy/AdvReac Type Severity Reaction Status Date / Time
No Known Drug Allergies Allergy Unknown Verified 03/18/25 11:43
Home Medications
rivaroxaban 20 mg tablet (Xarelto) 20 mg PO QPM Blood Clot Prevention/Tx 03/08/25
sertraline 50 mg tablet 50 mg PO DAILY Mental Health/Anxiety 03/08/25
valsartan 320 mg tablet 320 mg PO DAILY Blood Pressure 03/08/25
verapamil 180 mg tablet,extended release 180 mg PO DAILY Blood Pressure 03/08/25
amoxicillin 875 mg-potassium clavulanate 125 mg tablet 1 tab PO BID 14 days #28 tabs 03/16/25
Review of Systems
-
History Source: Patient
Constitutional: Reports No Symptoms
EENT: Reports No Symptoms
Respiratory: Reports Other (exertional shortness of breath )
Cardiac: Reports No Symptoms
Abdomen/GI: Reports Other (lower abdominal discomfort described as dull )
: Reports No Symptoms
Musculoskeletal: Reports Edema
Skin: Reports No Symptoms
Neurological: Reports No Symptoms
Endocrine: Reports No Symptoms
Hematologic/Lymphatic: Reports No Symptoms
Psych: Reports No Symptoms
Physical Exam
Vital Signs
Vital Signs
Temp Pulse Resp BP Pulse Ox
98.3 F 82 20 154/75 97
03/18/25 11:39 03/18/25 14:00 03/18/25 11:39 03/18/25 16:01 03/18/25 15:00
Physical Exam
General: Well Developed, Well Nourished, No Apparent Distress, Comfortable, Conversant, Good Appetite and Obese
HEENT: NormoCephalic, Moist mucous membranes, Atraumatic, Jefferson Conjunctivae, Nose Appears Normal and Ears Appear Normal
Respiratory: Clear and Decreased Breath Sounds
Cardiac: S1/S2 and Regular Rhythm
Breast: Deferred by me
GI: Soft, Non Tender, Non Distended and Normal Bowel Sounds
Rectal: Deferred by Provider
Genito-urinary: Deferred by me
Musculoskeletal: No Clubbing, No Cyanosis, Edema, Left Upper Extremity, Edema, Right Upper Extremity, Edema, Left Lower Extremity and Edema, Right Lower Extremity
Skin: Warm and IV/Catheter Site
Neuro: Awake, Alert, AO x 3 and Nonfocal/grossly intact
Psych: Calm and Intact Judgment/Insight
Laboratory Results
-
03/18/25 14:57
03/18/25 14:57
Laboratory Results
Total Bilirubin 0.7 mg/dl (0.2-1.3) 03/18/25 14:57
AST 43 U/L (14-36) H 03/18/25 14:57
ALT 48 U/L (0-35) H 03/18/25 14:57
Alkaline Phosphatase 54 U/L (38-126) 03/18/25 14:57
Lipase 490 U/L (23-300) H 03/18/25 14:57
Data Reviewed
-
Diagnostic Radiology: Report Reviewed by me (CXR: Mild CHF with small left pleural effusion and minimal right effusion.)
Medical Tests (Nuc Med, Echo, EKG etc): Report Reviewed by me (EKG: Ventricular-paced rhythm ABNORMAL ECG WHEN COMPARED WITH ECG OF 08-MAR-2025 12:05, ELECTRONIC VENTRICULAR PACEMAKER HAS REPLACED ATRIAL FIBRILLATION)
Lab Data: Labs Reviewed by me (BNP 4860)
Impression/Plan
-
IMPRESSION/PLAN:
#fluid overload 2/2 CHF??
BNP 4860
CXR: Mild CHF with small left pleural effusion and minimal right effusion.
EKG: Ventricular-paced rhythm
ABNORMAL ECG
WHEN COMPARED WITH ECG OF 08-MAR-2025 12:05,
ELECTRONIC VENTRICULAR PACEMAKER HAS REPLACED ATRIAL FIBRILLATION
- Admit to telemetry
- Consult Cardiology
- ECHO in AM
- IV Lasix
- daily weights
- I & Os
#permanent atrial fibrillation
- continue Xarelto
#hypertension
- continue valsartan and verapamil
#mild cognitive impairment
- continue sertraline
#Hx perforated diverticulitis
Code status: full code
DVT prophylaxis: Xarelto
--- NOTE | 2025-03-18 17:33 | W.PN.UPDATE ---
Update Note
Progress Note Update
This note serves as an addendum to the H&P by hair boiler operator CHRISTINE Yael Woods
HPI
79 F HX Prx AF , HTN, MCI, pw generalized edema and exertional shortness of breath.
Recent admission 03/08/2025 - 03/16/2025 for diverticulitis perforation with small abscess that was conservatively treated. - Reports prior to discharge she had generalized edema, and stating that it is about the same and has not gotten
better or worse.
ROS
Denies any fever, chills, cough, chest pain, nausea, vomiting, constipation, diarrhea and urinary.
Home Medications
rivaroxaban 20 mg tablet (Xarelto) 20 mg PO QPM Blood Clot Prevention/Tx 03/08/25
sertraline 50 mg tablet 50 mg PO DAILY Mental Health/Anxiety 03/08/25
valsartan 320 mg tablet 320 mg PO DAILY Blood Pressure 03/08/25
verapamil 180 mg tablet,extended release 180 mg PO DAILY Blood Pressure 03/08/25
amoxicillin 875 mg-potassium clavulanate 125 mg tablet 1 tab PO BID 14 days #28 tabs 03/16/25
Vital Signs
Temp Pulse Resp BP Pulse Ox
98.3 F 82 20 154/75 97
03/18/25 11:39 03/18/25 14:00 03/18/25 11:39 03/18/25 16:01 03/18/25 15:00
PE
Gen: NAD
HEENT: anicteric
Neck: POS JVP
Lungs: CTA
Cor: RRR S1 S2
Abdomen: soft NT NG
CONCRETE SWIMMING POOL INSTALLER: AAO3
MS: Edema in all extremities
Psych: not cognitive decline noted
Labs
03/16/25 03/16/25 03/18/25
05:06 05:07 14:57
WBC 13.0 H
Hgb 11.5 L 14.2 D
Creatinine 1.1 H 0.8
eGFR 50.80 > 60.00
Mxi-O-Jkomcvikzzm Pept 4860
EKG:
Ventricular-paced rhythm ABNORMAL ECG WHEN COMPARED WITH ECG OF 08-MAR-2025 12:05, ELECTRONIC VENTRICULAR PACEMAKER HAS REPLACED ATRIAL FIBRILLATION)
CXR: Mild CHF with small left pleural effusion and minimal right effusion.
Last hospitalist admission:
ASSESSMENT & PLAN
Volume overload with acute CHF with small left pleural effusion and minimal right effusion.
acute HF uncertain etiology
BNP 4860
- ECHO in AM
- IV Lasix
- daily BMP
- daily weights.I & Os
- DCA card consulted
Permanent atrial fibrillation
PPM implant
- continue chr Xarelto
Benign hypertension
- c/w valsartan and verapamil
Anxiety
Mild cognitive impairment
- c/w sertraline
HX perforated diverticulitis
DVT prophylaxis: Xarelto
Full code
IP TLM
[2025-03-18] MEDS: AUGMENTIN 875 MG/125 MG 1 TABLET PO (19:11)
[2025-03-18] MEDS: XARELTO 20 MG PO (19:11)
[2025-03-18] MEDS: MYLICON 80 MG PO (22:21)
[2025-03-19] VITALS (7 sets, daily range): BP systolic 121–187; BP diastolic 60–85; PULSE 80; O2SAT 97; BMI 37.9
[2025-03-19] MEDS: COLACE PO (05:31)
[2025-03-19 07:01] LABS: Blood Urea Nitrogen 15 mg/dl (7-17); Calcium 8.4 mg/dl (8.4-10.2); Carbon Dioxide 31 mmol/L (22-30); Chloride 103 mmol/L (98-107); Estimated Creatinine Clearance 67 ml/min; Glucose 97 mg/dl (70-99); HDL Cholesterol 67 mg/dl; LDL Cholesterol, Calculated 70 mg/dl; Potassium 3.5 mmol/L (3.5-5.1); Sodium 138 mmol/L (135-145); Total Cholesterol 150 mg/dl (50-199); Triglyceride 69 mg/dl (10-149); Very Low Density Lipoprotein 13 mg/dl (0-30); eGFR > 60.00
[2025-03-19] MEDS: DIOVAN 320 MG PO (08:34)
[2025-03-19] MEDS: AUGMENTIN 875 MG/125 MG 1 TABLET PO ×2 (08:34→19:55)
[2025-03-19] MEDS: COLACE 100 MG PO ×2 (08:35→19:56)
[2025-03-19] MEDS: CALAN EXTENDED RELEASE 180 MG PO (08:35)
[2025-03-19] MEDS: ZOLOFT 50 MG PO (08:35)
--- NOTE | 2025-03-19 08:49 | CON.CAR ---
Addendum entered and electronically signed by Harjit Villarreal MD 03/19/25 19:02:
79-year-old woman with permanent atrial fibrillation and Biotronik pacemaker followed by [facility] cardiology, recently admitted with diverticulitis and a small abscess, treated conservatively but received 13 L of IV fluid with subsequent
generalized edema. Patient was discharged and then readmitted with acute heart failure, presumably HFpEF.
PMH: Permanent atrial fibrillation, hypertension, mild cognitive impairment, history of diverticulitis with small abscess
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
Outpatient meds: Verapamil ER 180 mg a day, Xarelto 20 mg a day, valsartan 320 mg daily, sertraline 50 mg daily, Augmentin twice daily
Current meds: Augmentin, rivaroxaban 20 mg a day, sertraline 50 mg daily, valsartan 320 mg daily, verapamil SR 180 mg a day, furosemide 40 mg IV x 1 given today
Rest of history per Vanessa Lopez
153/74, pulse 91, respiratory rate 18, afebrile, weight at admission 517 was 99.3 kg, was 101.5 kg on March 11 and 109.8 kg at discharge 527. Weight this morning is 103.19 kg, Head neck exam unremarkable, lungs are clear JVD is not elevated,
predominantly regular rate and rhythm, soft systolic murmur, abdomen benign and limited in exam, 4+ lower extremity edema/lymphedema
Hemoglobin 14.2, platelets 236, BUN/creatinine 15 and 0.8 with a potassium of 3.5, proBNP was 4860 on admission, chest x-ray with left greater than right pleural effusion, pacemaker, vascular congestion
ECG atrial fibrillation with ventricular pacing, prior EKG 517 showed atrial fibrillation with nonspecific T wave changes
Impression:
Acute HFpEF
Recent admission for perforated sigmoid diverticulitis 03/08/2025 until 03/16/2025 with aggressive fluid resuscitation
HTN
Persistent atrial fibrillation
Chronic Xarelto OAC
s/p Biotronik DC PPM
Plan:
She presents with acute HFpEF likely related to aggressive volume resuscitation during her recent admission for diverticular abscess. She is responded well thus far to IV diuretics.
Interrogation of her pacemaker suggest that her atrial fibrillation may be recent in onset and that her atrial fibrillation burden prior to this was not high. This could also be a contributor.
At present, would continue IV furosemide. We could consider spironolactone and SGLT2 antagonists, but this decision can be made by her primary gym supervisor Dr. Wei.
I am inclined not to begin antiarrhythmic therapy or cardiovert at present. Decision regarding best management Dorian can be made by Dr. Wei.
Although she had a rash on metoprolol I would favor starting carvedilol for rate control in the morning and stopping verapamil in the setting of HFpEF.
Hopefully she will be ready for discharge in 24 to 48 hours.
Original Note:
Consultation
Consultation Request
Date/Time Consultation Requested: 03/18/25 at 1804
Date/Time Consultation Performed: 03/19/25 at 0850
Requesting Provider: Dr. Edward
Performing Provider: Dr. MAYRA Villarreal
Reason for Consultation: acute HF
Medical History
-
History of Present Illness:
Patient came to [facility] ER yesterday with swelling and is now admitted with acute HF and cardiology has been consulted. Patient was just admitted with perforated sigmoid diverticulitis from 03/08/2025 until 03/16/2025 and during that time received 13L
of IVFs. Patient was not taking a diuretic prior to admission and no diuretics were given during her previous admission. When patient came to the ER yesterday she complained of SOB and hand and foot edema. Patient also had mild lower abdominal
pain. Patient follows with ATC at [facility] and has a known history of paroxysmal A-fib and is chronically on Xarelto 20 mg daily. She has a PPM with unknown brand in place. I have called her primary gym supervisor records and await their arrival.
[facility]:
Recent admission for perforated sigmoid diverticulitis 03/08/2025 until 03/16/2025
HTN
Persistent atrial fibrillation
Chronic Xarelto OAC
s/p Biotronik DC PPM
Past Medical History
Past Medical History: Other (in HPI)
Past Surgical History: Cardiac (PPM) and Gynecological (lumpectomy x2)
Social History
Tobacco: Non-Smoker
Alcohol: None
Drug: None
Living: With Family
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
Family History
Family History: CAD and Cancer
Allergies / Home Medications
Allergy/AdvReac Type Severity Reaction Status Date / Time
No Known Drug Allergies Allergy Unknown Verified 03/18/25 11:43
�Medication �Instructions �Recorded �Confirmed �Type
rivaroxaban 20 mg tablet (Xarelto) 20 mg PO QPM Blood Clot 03/08/25 03/18/25 History
Prevention/Tx
sertraline 50 mg tablet 50 mg PO DAILY Mental 03/08/25 03/18/25 History
Health/Anxiety
valsartan 320 mg tablet 320 mg PO DAILY Blood Pressure 03/08/25 03/18/25 History
verapamil 180 mg tablet,extended 180 mg PO DAILY Blood Pressure 03/08/25 03/18/25 History
release
amoxicillin 875 mg-potassium 1 tab PO BID 14 days #28 tabs 03/16/25 03/18/25 Rx
clavulanate 125 mg tablet
Review of Systems
-
History Source: Patient
All other systems: Negative unless noted
Physical Exam
Vital Signs
Temp Pulse Resp BP Pulse Ox
99.5 F 91 18 153/74 97
03/19/25 07:40 03/19/25 08:35 03/19/25 07:40 03/19/25 08:35 03/19/25 07:40
GEN: NAD. AAO x3
HEENT: MMM
LUNGS: RA. No audible wheeze
CV: V paced on tele.
EXT: +2 B/L LE edema
NEURO: Gross non-focal
SKIN: No rash
Lab Results
03/18/25 14:57
03/19/25 06:12
Wbs-Y-Unwlbvzszer Pept 4860 pg/ml 03/18/25 14:57
Impression / Plan
-
PCP: Dr. Arya Jonas
Card: ATC
Impression:
Admitted with
Acute HFpEF
Recent admission for perforated sigmoid diverticulitis 03/08/2025 until 03/16/2025
HTN
Persistent atrial fibrillation
Chronic Xarelto OAC
s/p Biotronik DC PPM
Echo 03/11/2025: EF 56%, no WMA, moderate MR, aortic sclerosis without stenosis, Moderate TR with PAP 25 to 30 mmHg, normal pericardium without effusion
Plan:
-Patient came to [facility] ER yesterday with swelling and is now admitted with acute HF and cardiology has been consulted. Patient was just admitted with perforated sigmoid diverticulitis from 03/08/2025 until 03/16/2025 and during that time received 13L
of IVFs. Patient was not taking a diuretic prior to admission and no diuretics were given during her previous admission. When patient came to the ER yesterday she complained of SOB and hand and foot edema. Patient also had mild lower abdominal
pain. Patient follows with ATC at [facility] and has a known history of paroxysmal A-fib and is chronically on Xarelto 20 mg daily. She has a PPM with unknown brand in place. I have called her primary gym supervisor records and await their arrival.
-ECG reviewed by me is V paced, tele looks like A paced with underlying Afib
-Newly diagnosed acute HFpEF in the setting of recent admission for perforated diverticulitis with IV fluid resuscitation for 13 L. Suspect some component of iatrogenic volume overload. No previous h/o CHF. Lasix 60 mg IV x1 given in the ER
overnight and additional Lasix 40 mg IV x1 given this morning by hospitalist attending. Recommend additional Lasix 40 mg IV this afternoon and then 40 mg IV daily. Weight is up 10 lbs from last admission.
-Patient was not taking a diuretic prior to admission
-EF preserved at 56% by echo reviewed and summarized by me above. No previous echo for comparison
-Outpatient dose of valsartan 320 mg daily has been continued
-Patient was not taking a BB prior to admission and has an allergy to metoprolol listed in her [facility] records, it caused a rash. Could try adding Coreg.
-Patient is not chronically on an SGLT-2 inhibitor and could add, but this feels like largely iatrogenic volume overload.
-I called her primary gym supervisor and got old records which I reviewed and summarized within this note.
-Patient with more persistent Afib and 9% burden by device check at primary gym supervisor 03/07/25.
-Outpatient dose of Xarelto 20 mg daily (CrCl 67) has been continued
-Outpatient dose of verapamil SR 180 mg daily ordered, but HRs 90s much of the time and BP 180/83 so will increase to verapamil SR 180 mg BID and follow.
--- NOTE | 2025-03-19 09:39 | W.PN.HOSP.TC ---
Today's Communication/Plan
-
IV Lasix
control
BP
Assessment / Plan
Assessment / Plan
# Acute new onset HF with preserved EF
likely due to recent intestinal infection and IVF use.
BNP 4860
CXR: Mild CHF with small left pleural effusion and minimal right effusion.
EKG: Ventricular-paced rhythm
ABNORMAL ECG
WHEN COMPARED WITH ECG OF 08-MAR-2025 12:05,
ELECTRONIC VENTRICULAR PACEMAKER HAS REPLACED ATRIAL FIBRILLATION
-Give one time dose of IV Lasix and c/w IV Lasix
- daily weights
- I & Os
Appreciate cardiology help
#permanent atrial fibrillation
- continue Xarelto
#Essential hypertension
Uncontrolled, will titrate up her home medications.
- continue valsartan and verapamil
#mild cognitive impairment
Mood is pleasant and insightful
- continue sertraline
#Hx perforated diverticulitis
No abd pain
She takes daily miralax
c/w Augmentin to finish the course
Code status: full code
DVT prophylaxis: Xarelto
Total time spent to see the patient, examine the patient, review data and lab results and discuss treatment plan with pt, nursing staff around 55 minutes
Anticipated Discharge: 24 - 48 hours
Subjective/Interval History
-
Date of Service: March 19, 2025
Objective Data
-
Labs:
Laboratory Results
03/19/25
06:12
Sodium 138
Potassium 3.5
Chloride 103
Carbon Dioxide 31 H
BUN 15
Creatinine 0.8
Glucose 97
Calcium 8.4
Vital Signs:
Vital Signs
Temp Pulse Resp BP Pulse Ox
99.5 F 91 18 153/74 97
03/19/25 07:40 03/19/25 08:35 03/19/25 07:40 03/19/25 08:35 03/19/25 07:40
Physical Exam
-
General: Well Nourished and No Apparent Distress
HEENT: Atraumatic and Moist Mucous Membranes
Respiratory: Decreased Breath Sounds; Negative Wheezes
Cardiac: Regular Rhythm and S1/S2
GI: Soft, Nontender and Nondistended
Rectal: Negative Maroon Stools
Genito-urinary: No Costovertebral Tender; Negative Turner
Musculoskeletal: No Cyanosis, Edema, Right Lower Extrem, Edema, Left Lower Extrem and Normal Gait & Station
Skin: Negative Rash
Neuro: AO x 3 and Nonfocal/Grossly Intact
Psych: Calm and Intact Judgement/Insight
[2025-03-19] MEDS: LASIX 40 MG IV ×2 (11:58→17:21)
--- NOTE | 2025-03-19 15:54 | DOWNTIME ---
There was a [employer] Downtime on 03/19/2025 from 1230 to 03/19/2025 at 1550. Downtime documentation of patient's care, including medication administrations, has been reconciled in the electronic record per guidelines. Refer to the
patient's paper chart under the miscellaneous tab to see printed paper medication records and downtime forms.
--- NOTE | 2025-03-19 16:38 | CM ---
Addendum entered by FAITH Nice 03/19/25 16:45:
OBS letter provided, signed and on chart.
Original Note:
Met with patient to obtain information for assessment. Patient stated that she lives with her spouse in a two story home with three steps to enter. She described herself as independent with her ADLs, personal care, dressing and bathing. 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 She has a stair glide but no other DME. She has not had VN. She has not been to a SNF in the past.
Patient has a prescription plan and uses, [facility] in [place] for all of her medications.
Patient's PCP is, Arya Jonas.
Plan: Case management will continue to follow and assist with discharge planning. Home no needs.
[2025-03-19] MEDS: XARELTO 20 MG PO (17:17)
[2025-03-19] MEDS: MIRALAX 17 GRAMS PO (17:38)
[2025-03-19] MEDS: COREG 12.5 MG PO (19:55)
[2025-03-20] VITALS (7 sets, daily range): BP systolic 122–157; BP diastolic 58–80; PULSE 85; O2SAT 96; BMI 37.2
[2025-03-20 07:41] LABS: ALT (SGPT) 39 U/L (0-35); AST (SGOT) 33 U/L (14-36); Albumin 3.1 g/dl (3.5-5.0); Alkaline Phosphatase 35 U/L (38-126); Blood Urea Nitrogen 19 mg/dl (7-17); Calcium 8.2 mg/dl (8.4-10.2); Carbon Dioxide 34 mmol/L (22-30); Chloride 98 mmol/L (98-107); Estimated Creatinine Clearance 66 ml/min; Glucose 92 mg/dl (70-99); Potassium 3.4 mmol/L (3.5-5.1); Sodium 134 mmol/L (135-145); Total Bilirubin 0.7 mg/dl (0.2-1.3); Total Protein 5.6 g/dl (6.3-8.2); eGFR > 60.00
[2025-03-20] MEDS: ZOLOFT 50 MG PO (08:03)
[2025-03-20] MEDS: DIOVAN 320 MG PO (08:03)
[2025-03-20] MEDS: AUGMENTIN 875 MG/125 MG 1 TABLET PO ×2 (08:03→19:36)
[2025-03-20] MEDS: COREG 12.5 MG PO ×2 (08:03→19:36)
[2025-03-20] MEDS: COLACE 100 MG PO ×2 (08:03→19:36)
[2025-03-20] MEDS: LASIX 40 MG IV ×2 (08:03→16:24)
[2025-03-20] MEDS: MIRALAX 17 GRAMS PO (08:04)
--- NOTE | 2025-03-20 09:22 | W.PN.HOSP.TC ---
Today's Communication/Plan
-
c/w diuretic
Potassium replacement
f/w cardiology recommendations
Assessment / Plan
Assessment / Plan
Physical exam:
General: Well Nourished and No Apparent Distress
HEENT: Atraumatic and Moist Mucous Membranes
Respiratory: Decreased Breath Sounds; Negative Wheezes
Cardiac: Regular Rhythm and S1/S2
GI: Soft, Nontender and Nondistended
Genito-urinary: No Costovertebral Tender; Negative Turner
Musculoskeletal: No Cyanosis, Edema, Right Lower Extrem, Edema, Left Lower Extrem and Normal Gait & Station
Skin: Negative Rash
Neuro: AO x 3, mildly forgetful and Nonfocal/Grossly Intact
Psych: Calm and Intact Judgement/Insight
# Acute new onset HF with preserved EF
likely due to recent intestinal infection and IVF use.
BNP 4860
CXR: Mild CHF with small left pleural effusion and minimal right effusion.
EKG: Ventricular-paced rhythm
ABNORMAL ECG
WHEN COMPARED WITH ECG OF 08-MAR-2025 12:05,
ELECTRONIC VENTRICULAR PACEMAKER HAS REPLACED ATRIAL FIBRILLATION
-Give one time dose of IV Lasix and c/w IV Lasix
- daily weights
- I & Os
c/w IV Lasix and started on new medicine Coreg
Appreciate cardiology help
# Hypokalemia
replaced.
#permanent atrial fibrillation
- continue Xarelto
Started on Coreg to better control A fib, stopped Verapamil.
Per cardiology: Interrogation of her pacemaker suggest that her atrial fibrillation may be recent in onset and that her atrial fibrillation burden prior to this was not high, could also be a contributor.
#Essential hypertension
Uncontrolled, will titrate up her home medications.
- continue valsartan, LAsix, and Coreg
#mild cognitive impairment
Mood is pleasant and insightful
- continue sertraline
#Hx perforated diverticulitis
No abd pain
She takes daily MiraLAX
c/w Augmentin to finish the course
Code status: full code
DVT prophylaxis: Xarelto
Total time spent to see the patient, examine the patient, review data and lab results and discuss treatment plan with pt, nursing staff around 55 minutes
Anticipated Discharge: Within 24 hours
Subjective/Interval History
-
Date of Service: March 20, 2025
No sob
No chest pain
Objective Data
-
Labs:
Laboratory Results
03/20/25
06:14
Sodium 134 L
Potassium 3.4 L
Chloride 98
Carbon Dioxide 34 H
BUN 19 H
Creatinine 0.8
Glucose 92
Calcium 8.2 L
Total Bilirubin 0.7
AST 33
ALT 39 H
Alkaline Phosphatase 35 L
Vital Signs:
Vital Signs
Temp Pulse Resp BP Pulse Ox
98.2 F 72 18 156/80 96
03/20/25 07:15 03/20/25 07:15 03/20/25 07:15 03/20/25 07:15 03/20/25 07:15
I&O
03/19/25 03/20/25 03/21/25
06:59 06:59 06:59
Intake Total 1200 / 1200
Balance 1200 / 1200
[2025-03-20] MEDS: KCL 40 MEQ PO (11:33)
[2025-03-20] MEDS: ALDACTONE 25 MG PO (11:33)
--- NOTE | 2025-03-20 11:54 | W.PN.CARDCBS ---
Addendum entered and electronically signed by Harjit Villarreal MD 03/20/25 14:07:
79-year-old woman with permanent atrial fibrillation and Biotronik pacemaker followed by Laverne Wei cardiology, recently admitted with diverticulitis and a small abscess, treated conservatively but received 13 L of IV fluid with subsequent
generalized edema. Patient was discharged and then readmitted with acute heart failure, presumably HFpEF.
Currently she feels well, at bedside
PMH: Permanent atrial fibrillation, hypertension, mild cognitive impairment, history of diverticulitis with small abscess
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
Current medications: Augmentin, Xarelto 20 mg a day, sertraline 50 mg a day, valsartan 320 mg a day, Colace, furosemide 40 mg IV daily, MiraLAX, Carvedilol 12.5 mg twice daily (new, after verapamil DC'd)
156/80, Pulse 72, sats 96%, weight is 101.3 kg, down 1.9 kg, still with upper extremity and lower extremity edema, lungs with crackles in bases JVD okay, regular rate and rhythm
BUN/creatinine are 19 and 0.8, potassium 3.4
Impression:
Acute HFpEF
Recent admission for perforated sigmoid diverticulitis 03/08/2025 until 03/16/2025 with aggressive fluid resuscitation
HTN
Persistent atrial fibrillation
Chronic Xarelto OAC
s/p Biotronik DC PPM
Plan:
She appears improved but still marked volume overloaded. Will make furosemide 40 mg IV twice daily.
I texted Dr. Wei. We agreed to add spironolactone 25 mg a day. He will likely add an SGLT2 antagonist as an outpatient, he wanted to add 1 drug at a time.
Will reassess regarding transition to oral diuretic in a.m.
Still in atrial fibrillation. Continue anticoagulation. Rate control is adequate. Previously atrial fibrillation burden had been around 10%. Will not cardiovert, hopefully she will spontaneously convert to sinus rhythm and if not can be
reassessed by Dr. Wei.
Now on carvedilol for rate control. Verapamil has been stopped.
Original Note:
Today's Communication / Plan
-
Added B/L knee high tubigrips
Cont Lasix 40 mg IV BID
Impression / Plan
-
PCP: Dr. Arya Jonas
Card: ATC
Impression:
Admitted with
Acute HFpEF
Recent admission for perforated sigmoid diverticulitis 03/08/2025 until 03/16/2025
HTN
Persistent atrial fibrillation
Chronic Xarelto OAC
s/p Biotronik DC PPM
Echo 03/19/25: EF 56%, no WMA, moderate MR, aortic sclerosis without stenosis, Moderate TR with PAP 25 to 30 mmHg, normal pericardium without effusion
Plan:
-Weight is down 4 lbs overnight. Cre stable at 0.8, labs reviewed by me 03/20/25. Cont Lasix 40 mg IV BID. Patient was not taking a diuretic prior to admission
-EF preserved at 56%
-New to Coreg 12.5 mg BID this admission. Patient has a h/o rash with metoprolol, but tolerating Coreg thus far
-Outpatient dose of verapamil has been stopped in favor or BB
-Outpatient dose of valsartan 320 mg daily has been continued
-New to spironolactone 25 mg daily
-Patient is not chronically on an SGLT-2 inhibitor and could add, but this seems to be iatrogenic volume overload so will defer to outpatient er rn. Patient received 13 L IVFs last admission.
-Patient with more persistent Afib and 9% burden by device check at primary er rn 03/07/25. No plans for more aggressive rhythm control, will defer to primary er rn.
-Outpatient dose of Xarelto 20 mg daily (CrCl 67) has been continued
HPI: Patient came to [facility] ER yesterday with swelling and is now admitted with acute HF and cardiology has been consulted. Patient was just admitted with perforated sigmoid diverticulitis from 03/08/2025 until 03/16/2025 and during that time received
13L of IVFs. Patient was not taking a diuretic prior to admission and no diuretics were given during her previous admission. When patient came to the ER yesterday she complained of SOB and hand and foot edema. Patient also had mild lower
abdominal pain. Patient follows with ATC at [facility] and has a known history of paroxysmal A-fib and is chronically on Xarelto 20 mg daily. She has a PPM with unknown brand in place. I have called her primary er rn records and await their
arrival.
Progress Note - Recharger
Subjective
Date of Service: March 20, 2025
Feels better, thinks hand edema improving faster than LE edema
Objective
Labs:
03/18/25 14:57
03/20/25 06:14
Labs
Hgb 14.2 g/dL (12.0-16.0) D 03/18/25 14:57
Hct 41.3 % (37.0-47.0) 03/18/25 14:57
Plt Count 236 10^3/uL (130-400) D 03/18/25 14:57
Sodium 134 mmol/L (135-145) L 03/20/25 06:14
Potassium 3.4 mmol/L (3.5-5.1) L 03/20/25 06:14
BUN 19 mg/dl (7-17) H 03/20/25 06:14
Creatinine 0.8 mg/dL (0.6-1.0) 03/20/25 06:14
Glucose 92 mg/dl (70-99) 03/20/25 06:14
Vital Signs and I&O:
Vital Signs
Temp Pulse Resp BP Pulse Ox
98.1 F 71 18 137/70 95
03/20/25 11:18 03/20/25 11:18 03/20/25 11:18 03/20/25 11:18 03/20/25 11:18
Vital Signs
Temp Pulse Resp BP Pulse Ox
98.1 F 71 18 137/70 95
03/20/25 11:18 03/20/25 11:18 03/20/25 11:18 03/20/25 11:18 03/20/25 11:18
Intake & Output
03/18/25 03/19/25 03/20/25 03/21/25
06:59 06:59 06:59 06:59
Intake Total 1200 / 1200
Balance 1200 / 1200
Physical Exam
Physical Exam
GEN: NAD. AAO x3
LUNGS: RA. No audible wheeze
CV: V paced on tele.
EXT: +2 B/L LE edema
NEURO: Gross non-focal
SKIN: No rash
--- NOTE | 2025-03-20 11:58 | PN.CDI ---
Addendum entered and electronically signed by Leida Edward MD 03/20/25 12:57:
Permanent atrial fibrillation
Original Note:
CDI
- -
CDI:
Physician Documentation Request
Admit Date: 03/19/25 17:03
Dear Doctor Wagner,
Patient admitted with heart failure. Progress notes also include atrial fibrillation.
Cardiology refers to the atrial fib as persistent.
Hospitalist as permanent.
Please clarify the type atrial fibrillation :
Persistent atrial fibrillation - episodes of continuous AF that last more than 7 days and do not self-terminate
Permanent atrial fibrillation - when a decision has been made to accept the presence of AF and there is no further attempt to restore or maintain sinus rhythm
Other - please specify
Use of terms such as suspected, likely, concern for, or probable (associated with a specific diagnosis that is being evaluated, monitored, or treated as if it exists) are acceptable and can be coded in the inpatient setting, when documented at the
time of discharge.
Thank you,
Carolina Baca RN BSN
CDI Specialist
tiger text
Please use your independent medical judgment in providing your response.
--- NOTE | 2025-03-20 13:22 | W.DCSUMMARY ---
Discharge Summary
Discharge Data
Date of Admission: 03/18/25
Date of Discharge: 03/21/25
-
Pending Results: No
Hospital Course
79 years old female was admitted with increasing peripheral edema. Patient was diagnosed with acute on chronic heart failure with a preserved ejection fraction. Echocardiogram showed mild concentric left ventricular hypertrophy with no regional
wall motion abnormalities, LVEF 55 to 60%, mild to moderate mitral regurgitation, moderate tricuspid regurgitation with estimated pulmonary artery pressure of 25 to 30 mmHg, IVC was dilated. Patient was followed by commercial interior designer. She received
intravenous Lasix therapy. She lost weight and started to improve. Of note, patient did not report shortness of breath or chest pain. She was started on low-dose Aldactone, carvedilol. She had regular blood work to monitor her renal function
and potassium. Patient was given prescription to do blood work in outpatient setting. Patient was not on SGLT2 inhibitor, her primary commercial interior designer Dr. Wei was updated and defer further treatments in outpatient setting. Verapamil was
discontinued in favor of carvedilol. Patient remained hemodynamically stable. Patient was discharged home in a stable condition.
Discharge Plan
-
Patient Disposition: Home with Home Care
Discharge Diagnosis/Procedures: Heart failure
Diet: Low Sodium and 2 Gram Sodium
Blood Work: BMP, pro-BNP in 3-5 days -prescription given
Specialty Instructions: Weigh Daily- Call MD for wt gain/loss 3 lbs overnight/5 lbs in 1 week
Instructions: *PCP/Other Cut Off Saw Operator Heart Failure Instructions
Referrals:
Arya Jonas DO [Family Provider, Family Practice] - in one to two weeks
Harjit Wei DO [Affiliate, Cardiology] - 03/25/25 10:15 am
Prescriptions:
New
furosemide 40 mg Tablet
40 mg PO BID AT 0800,1600 Qty: 60 0RF
carvedilol 12.5 mg Tablet
12.5 mg PO BID Qty: 60 0RF
spironolactone 25 mg Tablet
25 mg PO DAILY Qty: 30 0RF
Continued
valsartan 320 mg Tablet
320 mg PO DAILY
sertraline 50 mg Tablet
50 mg PO DAILY
Xarelto 20 mg Tablet
20 mg PO QPM
amoxicillin-pot clavulanate 875-125 mg tablet
1 tab PO BID 14 Days Qty: 28 0RF
Rx Instructions:
for 14 days starting 03/16/25
Discontinued
verapamil 180 mg Tablet Extended Release
180 mg PO DAILY
Discharge Orders:
Discharge Patient (As Directed); Ordered 03/21/25
Ordered By: Leida Edward
Discharge Date and Time
Discharge Date/Time: 03/21/25 15:40
Print Language: DOMINICAN
[2025-03-20] MEDS: XARELTO 20 MG PO (17:45)
[2025-03-20] MEDS: MELATONIN 5 MG PO (21:28)
[2025-03-21 03:23] VITALS: BP 122/60
[2025-03-21 06:00] VITALS: BMI 36.4
[2025-03-21 07:01] LABS: Blood Urea Nitrogen 25 mg/dl (7-17); Calcium 8.6 mg/dl (8.4-10.2); Carbon Dioxide 33 mmol/L (22-30); Chloride 95 mmol/L (98-107); Estimated Creatinine Clearance 58 ml/min; Glucose 90 mg/dl (70-99); Potassium 3.9 mmol/L (3.5-5.1); Sodium 134 mmol/L (135-145); eGFR > 60.00
[2025-03-21 07:25] VITALS: BP 151/70
[2025-03-21] MEDS: ALDACTONE 25 MG PO (08:06)
[2025-03-21] MEDS: AUGMENTIN 875 MG/125 MG 1 TABLET PO (08:06)
[2025-03-21] MEDS: DIOVAN 320 MG PO (08:06)
[2025-03-21] MEDS: COLACE 100 MG PO (08:06)
[2025-03-21] MEDS: ZOLOFT 50 MG PO (08:06)
[2025-03-21] MEDS: COREG 12.5 MG PO (08:06)
[2025-03-21] MEDS: MIRALAX 17 GRAMS PO (08:07)
[2025-03-21] MEDS: LASIX 40 MG IV (08:07)
--- NOTE | 2025-03-21 08:55 | W.PN.CARDCBS ---
Addendum entered and electronically signed by Leigh Ann Reyes MD 03/21/25 13:05:
I saw and examined the patient.
The Integration Analyst's note was reviewed and I agree with the note.
Comment: Admitted with HFpEF in the setting of recent volume overload in part related to significant inflammation from diverticulitis earlier in February. Although still edematous continues to improve. She is ambulating to the bathroom which is a short
distance without difficulty. Stable to discharge home as long as close follow-up within 7 to 10 days. Working on appointment currently. Discussed with patient and her at the bedside.
Exam with lower extremity edema +2. Also of note albumin remains low at 3.1 which is not unexpected and likely leading to some degree of third spacing.
Continue oral diuretic and spironolactone
Labs including BMP and proBNP in 1 week
Follow-up with usual eap specialist in 7 to 10 days
Call if she gains 3 pounds in 1 day or 5 pounds in a week.
Sodium and fluid restricted diet
Increase nutrition support at home
Continue medications otherwise.
Continue anticoagulation for atrial arrhythmia.
Original Note:
Today's Communication / Plan
-
-transition to oral Lasix today
-BMP 3-4 days after discharge, pt new to spironolactone and Lasix
Impression / Plan
-
PCP: Dr. Arya Jonas
Card: ATC
Impression:
Admitted with acute HFpEF
Recent admission for perforated sigmoid diverticulitis 03/08/2025 until 03/16/2025, had rec'd 13 L IVF during the admission
HTN
Persistent atrial fibrillation
Chronic Xarelto OAC
s/p Biotronik DC PPM
dementia
Echo 03/19/25: EF 56%, no WMA, moderate MR, aortic sclerosis without stenosis, Moderate TR with PAP 25 to 30 mmHg, normal pericardium without effusion
Plan:
-Weight is down 5 lbs overnight and 20 lbs since admission to 218 lbs. Pt reports usual home wt ~215 lbs. Cre remains stable at 0.9, labs reviewed by me 03/21/25. Still with significant LE edema. SOB improved. Patient was not taking a diuretic
prior to admission
-EF preserved at 56%
-New to Coreg 12.5 mg BID this admission. Patient has a h/o rash with metoprolol, but tolerating Coreg thus far
-Outpatient dose of verapamil has been stopped in favor or BB
-Outpatient dose of valsartan 320 mg daily has been continued
-New to spironolactone 25 mg daily-first dose 03/20/2025
-K repleted 03/20 for K 3.4. K today 3.9 03/21/25
-Patient is not chronically on an SGLT-2 inhibitor, defer to outpatient eap specialist Dr Wei who is aware of her admission and above med changes (addition of Spironolactone and Coreg as well as Lasix).
-Patient with more persistent Afib and 9% burden by device check at primary eap specialist 03/07/25. No plans for more aggressive rhythm control, will defer to primary eap specialist.
-Outpatient dose of Xarelto 20 mg daily (CrCl 67) has been continued
-telemetry: Vpaced and afib, HRs 60-80s
-EKG today atrial flutter w/variable AV block, HR 61 bpm
HPI: Patient came to [facility] ER yesterday with swelling and is now admitted with acute HF and cardiology has been consulted. Patient was just admitted with perforated sigmoid diverticulitis from 03/08/2025 until 03/16/2025 and during that time received
13L of IVFs. Patient was not taking a diuretic prior to admission and no diuretics were given during her previous admission. When patient came to the ER yesterday she complained of SOB and hand and foot edema. Patient also had mild lower
abdominal pain. Patient follows with ATC at [facility] and has a known history of paroxysmal A-fib and is chronically on Xarelto 20 mg daily. She has a PPM with unknown brand in place. I have called her primary eap specialist records and await their
arrival.
Progress Note - Translational Specialist
Subjective
Date of Service: March 21, 2025
-diuresing, down 5 lbs overnight, 20 lbs since admission
-still with LE edema but UE edema and SOB resolved
Objective
Labs:
03/18/25 14:57
03/21/25 06:00
Labs
Hgb 14.2 g/dL (12.0-16.0) D 03/18/25 14:57
Hct 41.3 % (37.0-47.0) 03/18/25 14:57
Plt Count 236 10^3/uL (130-400) D 03/18/25 14:57
Sodium 134 mmol/L (135-145) L 03/21/25 06:00
Potassium 3.9 mmol/L (3.5-5.1) 03/21/25 06:00
BUN 25 mg/dl (7-17) H 03/21/25 06:00
Creatinine 0.9 mg/dL (0.6-1.0) 03/21/25 06:00
Glucose 90 mg/dl (70-99) 03/21/25 06:00
Vital Signs and I&O:
Vital Signs
Temp Pulse Resp BP Pulse Ox
98.3 F 70 18 122/60 96
03/21/25 07:25 03/21/25 07:25 03/21/25 07:25 03/21/25 08:06 03/21/25 07:25
Vital Signs
Temp Pulse Resp BP Pulse Ox
98.3 F 70 18 122/60 96
03/21/25 07:25 03/21/25 07:25 03/21/25 07:25 03/21/25 08:06 03/21/25 07:25
Intake & Output
03/19/25 03/20/25 03/21/25 03/22/25
06:59 06:59 06:59 06:59
Intake Total 1200 / 1200 360 / 360
Balance 1200 / 1200 360 / 360
Physical Exam
Physical Exam
GEN: No distress, awake, Ox3, sitting in chair with legs elevated
HEENT: supple, anicteric, mmm
LUNGS: CTA, no wheezes/rales
CV: irreg, irreg no murmur
ABD: soft, BS+, NT/ND
EXT: 2+ B/L LE edema to thighs
NEURO: Gross non-focal
SKIN: No rash
--- NOTE | 2025-03-21 09:08 | W.PN.HOSP.TC ---
Today's Communication/Plan
-
discharge plan
Assessment / Plan
Assessment / Plan
Physical exam:
General: Well Nourished and No Apparent Distress
HEENT: Atraumatic and Moist Mucous Membranes
Respiratory: Decreased Breath Sounds; Negative Wheezes
Cardiac: Regular Rhythm and S1/S2
GI: Soft, Nontender and Nondistended
Genito-urinary: No Costovertebral Tender; Negative Turner
Musculoskeletal: No Cyanosis, less Edema, Right Lower Extrem, less Edema, Left Lower Extrem and Normal Gait & Station
Skin: Negative Rash
Neuro: AO x 3, mildly forgetful and Nonfocal/Grossly Intact
Psych: Calm and Intact Judgement/Insight
# Acute new onset HF with preserved EF
likely due to recent intestinal infection and IVF use.
BNP 4860
CXR: Mild CHF with small left pleural effusion and minimal right effusion.
EKG: Ventricular-paced rhythm
ABNORMAL ECG
WHEN COMPARED WITH ECG OF 08-MAR-2025 12:05,
ELECTRONIC VENTRICULAR PACEMAKER HAS REPLACED ATRIAL FIBRILLATION
-Give one time dose of IV Lasix and s/p IV Lasix
- daily weights, lost > 10 Kg.
- I & Os
c/w IV Lasix and started on new medicine Coreg and Aldactone.
Appreciate cardiology help
# Hypokalemia
replaced.
# Hyponatremia
#permanent atrial fibrillation
- continue Xarelto
Started on Coreg to better control A fib, Aldactone.
Per cardiology: Interrogation of her pacemaker suggest that her atrial fibrillation may be recent in onset and that her atrial fibrillation burden prior to this was not high, could also be a contributor.
#Essential hypertension
Better controlled,
- continue valsartan, Lasix, Aldactone and Coreg
#mild cognitive impairment
Mood is pleasant and insightful
- continue sertraline
#Hx perforated diverticulitis
No abd pain
She takes daily MiraLAX
c/w Augmentin to finish the course
Code status: full code
DVT prophylaxis: Xarelto
Total discharge time spent to see the patient, examine the patient, review data and lab results and discuss discharge plan with pt, , cardiology and nursing staff around 65 minutes
Anticipated Discharge: Today
Subjective/Interval History
-
Date of Service: March 21, 2025
No chest pain
No sob
Denies complaints
Objective Data
-
Labs:
Laboratory Results
03/21/25
06:00
Sodium 134 L
Potassium 3.9
Chloride 95 L
Carbon Dioxide 33 H
BUN 25 H
Creatinine 0.9
Glucose 90
Calcium 8.6
Vital Signs:
Vital Signs
Temp Pulse Resp BP Pulse Ox
98.3 F 70 18 122/60 96
03/21/25 07:25 03/21/25 07:25 03/21/25 07:25 03/21/25 08:06 03/21/25 07:25
I&O
03/20/25 03/21/25 03/22/25
06:59 06:59 06:59
Intake Total 1200 / 1200 360 / 360
Balance 1200 / 1200 360 / 360
[2025-03-21 11:13] VITALS: BP 134/72
--- NOTE | 2025-03-21 12:42 | CM ---
Pt cleared for discharge to home today with no needs.
Pt was OBS level of care on admission, but has changed to inpatient; IMM form reviewed with patient today and signed copy placed in chart.
Plan: Discharge to home with no discharge planning needs. Family to transport.
--- NOTE | 2025-03-21 13:33 | W.PN.UPDATE ---
Update Note
Progress Note Update
I called Dr. Wei's office to get 1 week follow-up appointment as patient is being discharged today with multiple medication changes for her heart failure preserved EF. Office was not able to give me an immediate appointment and will call my cell
with appointment date/time
[2025-03-21 14:45] VITALS: BP 132/55
== END 2025-03-21 15:40 | disposition home or self-care (01) | DRG 291 ==
LOC: 4 EAST ACU 17:03
PROVIDERS: Emergency Medicine; Nurse Practitioner Family; ADMITTING PHYSICIAN Internal Medicine; ATTENDING PHYSICIAN Internal Medicine; EMERGENCY PHYSICIAN Emergency Medicine; FAMILY PHYSICIAN Family Medicine; OTHER PHYSICIAN Internal Medicine Cardiovascular Disease
PROC: 4B02XSZ Measurement of Cardiac Pacemaker, External Approach (ICD-10-PCS; 2025-03-18)
DX: I11.0 Hypertensive heart disease with heart failure (principal); I50.33 Acute on chronic diastolic (congestive) heart failure; I48.21 Permanent atrial fibrillation; F03.94 Unspecified dementia, unspecified severity, with anxiety; Z79.01 Long term (current) use of anticoagulants; F41.9 Anxiety disorder, unspecified; Z79.899 Other long term (current) drug therapy; Z95.0 Presence of cardiac pacemaker
CPT/HCPCS: 71046; 80048; 80053; 80061; 83690; 83880; 85025; 93005; 93288; 93306; 96374; 97116; 97163; 97165; 99285

== ENCOUNTER → 2025-04-10 07:41 | Outpatient (REF) | payer MEDICARE, BC, SELFPAY | LOC: RAD 07:41 | PROVIDERS: ATTENDING PHYSICIAN Surgery; FAMILY PHYSICIAN Family Medicine | DX: K57.32 Diverticulitis of large intestine without perforation or abscess without bleeding (principal) | CPT/HCPCS: 74177; Q9967 ==

== ENCOUNTER 2025-05-13 06:18 | Day surgery (SDC) | payer MEDICARE, BC, SELFPAY | END 2025-05-13 11:04 | disposition home or self-care (01) | LOC: GI 06:18 | PROVIDERS: ATTENDING PHYSICIAN Surgery | DX: K57.32 Diverticulitis of large intestine without perforation or abscess without bleeding (principal); K55.20 Angiodysplasia of colon without hemorrhage; K64.4 Residual hemorrhoidal skin tags; K64.8 Other hemorrhoids; K63.89 Other specified diseases of intestine; K57.30 Diverticulosis of large intestine without perforation or abscess without bleeding; D12.0 Benign neoplasm of cecum; D12.5 Benign neoplasm of sigmoid colon | CPT/HCPCS: 45385; 45381; 45380; 88305 ==